=== PATIENT | male | born 1945 | race Caucasian/White ===

== ENCOUNTER 2016-09-01 03:38 | Inpatient (IN) | payer MEDICARE, BC, OTHER ==
[~2016-09-01] VITALS: Ht 167.6 cm; Wt 73.1 kg
[~2016-09-01 03:38] MED LIST: ALLO100T PO; AUGM500T34 PO; CALC600T10 PO; CIPR500T3 PO; COUM1TAB19 PO; FLAG500T PO; LOVE0.01 SC; LOVE0.6I2 SC; MINO25TA PO; OMEP20CA3 PO; PERCOCET PO; POTA10CA PO; PRAV10TA3 PO; PRED25TA PO; PRED5TA PO; SPIR25TA2 PO; SYNT125T PO; SYNT150T PO; TEKT150T PO; TORS10TA3 PO; VITA100066 PO
[2016-09-01] MEDS ORDERED: ONDANSETRON 4MG/2ML VIAL (J2405) As Ordered ONE (05:25)
[2016-09-01] MEDS ORDERED: LEVOTHYROXINE 0.15 MG TAB (150 MCG) PO SCH (06:00)
[2016-09-01 06:46] LABS: MEAN CORPUSCULAR HEMOGLOBIN 35.7 pg (27.0-33.0); MEAN CORPUSCULAR HGB CONC 32.2 g/dl (32.0-36.5); MEAN CORPUSCULAR VOLUME 110.6 fl (80.0-96.0); PLATELET COUNT, AUTOMATED 571 k/mm3 (150-450); RED CELL DISTRIBUTION WIDTH 15.6 % (11.5-14.5); WHITE BLOOD COUNT 28.3 K/mm3 (4.0-10.0)
[2016-09-01 06:47] LABS: DIFF SLIDE NUMBER 118
[2016-09-01 07:02] LABS: ALBUMIN 3.4 GM/DL (3.2-5.2); ALKALINE PHOSPHATASE 123 U/L (45-117); ALT/SGPT 31 U/L (12-78); AMYLASE 55 U/L (25-115); ANION GAP 14 MEQ/L (8-16); AST/SGOT 19 U/L (15-37); BILIRUBIN,DIRECT < 0.1 MG/DL (0.0-0.2); BILIRUBIN,TOTAL 0.4 MG/DL (0.2-1.0); BLOOD UREA NITROGEN 34 MG/DL (7-18); CALCIUM LEVEL 9.8 MG/DL (8.8-10.2); CARBON DIOXIDE LEVEL 21 MEQ/L (21-32); CHLORIDE LEVEL 106 MEQ/L (98-107); CREATININE FOR GFR 2.06 MG/DL (0.70-1.30); GLOMERULAR FILTRATION RATE 34.1 (>42); GLUCOSE, FASTING 208 MG/DL (83-110); POTASSIUM SERUM 4.1 MEQ/L (3.5-5.1); SODIUM LEVEL 141 MEQ/L (136-145); TOTAL PROTEIN 9.1 GM/DL (6.4-8.2)
[2016-09-01 07:12] LABS: BANDS 10 % (< 11); BASOPHILS 1 % (0-4); EOSINOPHILS 1 % (0-5); NUCLEATED RED BLOOD CELL 1 % (0-0)
[2016-09-01 07:13] LABS: PLATELET CLUMPS SMALL AMT
[2016-09-01 07:14] LABS: GIANT PLATELETS 1+; HYPOCHROMASIA 1+
[2016-09-01] MEDS ORDERED: ACETAMINOPHEN 325 MG TAB As Ordered ONE ×2 (07:17→12:23)
[2016-09-01] MEDS ORDERED: PROMETHAZINE INJ 25 MG/ML VIAL (J2550) As Ordered ONE (07:34)
[2016-09-01] MEDS ORDERED: ENOXAPARIN 100MG/1ML SYRINGE (J1650) As Ordered ONE (08:32)
[2016-09-01] MEDS ORDERED: PYRIDOXINE 50 MG TAB PO SCH (09:00)
--- NOTE | 2016-09-01 10:26 | REP ---
Clinical: Chest pain and tachycardia . Comparison: 06/07/2016 . Findings: The mediastinum and cardiac silhouette are stable and within normal limits for portable technique. The lung ray are clear without acute consolidation, effusion, or pneumothorax. Skeletal structures are intact. Impression: Normal portable chest x-ray Signed by Josh Vaughan MD 09/01/2016 10:18 A
[2016-09-01] MEDS ORDERED: PYRI100T2 PO (11:06)
[2016-09-01] MEDS ORDERED: ONDANSETRON 4MG/2ML VIAL (J2405) IV PRN (11:45)
[2016-09-01 13:06] LABS: BASO % 0.2 % (0.0-1.0); EOS # 0.3 K/mm3 (0.0-0.50); EOS % 1.8 % (0.0-3.0); LARGE UNSTAINED CELL # 0.2 K/mm3 (0.0-0.4); LARGE UNSTAINED CELL % 0.8 % (0.0-4.0); LYMPH # 1.8 K/mm3 (1.5-4.5); LYMPH % 9.2 % (24.0-44.0); MEAN CORPUSCULAR HEMOGLOBIN 34.8 pg (27.0-33.0); MEAN CORPUSCULAR HGB CONC 31.3 g/dl (32.0-36.5); MEAN CORPUSCULAR VOLUME 111.1 fl (80.0-96.0); MONO # 0.8 K/mm3 (0.0-0.8); MONO % 4.5 % (0.0-5.0); NEUTROPHILS # 15.1 K/mm3 (1.8-7.7); NEUTROPHILS % 83.4 % (36.0-66.0); RED CELL DISTRIBUTION WIDTH 16.4 % (11.5-14.5)
[2016-09-01 13:08] LABS: PLATELET COUNT, AUTOMATED 427 k/mm3 (150-450)
--- NOTE | 2016-09-01 14:20 | HPE ---
DATE OF ADMISSION: 09/01/2016 This is a patient of Dr. Skinner. CHIEF COMPLAINT: Vomiting. SUMMARY OF PRESENTATION: This is a 71-year-old who was in a normal state of health yesterday. He had half a sub for dinner, which was left over from the day before. They have city water. No recent travel. No known sick contacts. He developed vomiting and diarrhea multiple times, starting at right around midnight or a little bit after. Every time he vomited he would have loose stools. He said it felt as though it was running out of both ends at once. He had cramping abdominal pain associated with it. At this point, he has had not had loose bowel movement or vomiting in several hours. He did have a positive screen for norovirus in the emergency department. PAST MEDICAL HISTORY: Notable for: 1. Hypertension. 2. Dyslipidemia. 3. Hypothyroidism. 4. 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 5. Recent deep vein thrombosis (DVT) and pulmonary embolism (PE). 6. Mediastinal lymphadenopathy. FAMILY HISTORY: Notable for a father who is due to lung cancer. Former smoker. 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 He had two hospitalizations in May 2016. The last was for likely gastritis. He has been fine since. He has had no recent change in medications. REVIEW OF SYSTEMS: There is no headache. No visual changes. He has a sore throat. No neck pain. No cough. No shortness of breath. No chest pain. He had crampy abdominal pain associated with vomiting and diarrhea, which has since resolved. Otherwise is unremarkable. PHYSICAL EXAMINATION: Blood pressure 111/72, pulse 128, respiratory rate 26, temperature 103.2, 98% on room air. Weight 72.5 kg, body mass index 25.8. He is awake, appropriately interactive, pleasant conversant, and a good historian. Sinuses are nontender. Pupils equal, round, and reactive. Anicteric. Not injected. Nasal septum is midline. Mucous membranes are moist. Neck is supple. No cervical or supraclavicular adenopathy. Breathing is symmetrical, rested. Inspiratory to expiratory (I-to-E) ratio is 1:3. No wheezes, rales, or rhonchi. Heart is in a regular rhythm. Normal S1, S2. He is tachycardic. Distal pulses 2+. Capillary refill is less than 2 seconds. Abdomen is notable for active bowel sounds. Soft, nontender, nondistended. There is no lower extremity edema. He is moving all four extremities. Cranial nerves II-XII are grossly intact. He has normal mood and affect. There are labs available for me to review, which include the following. White cell count 28.3, hemoglobin 12.8, platelets of 571, neutrophils 84, bands 10. Sodium 141, potassium 4.1, chloride 106, carbon dioxide 21, BUN 34, creatinine 2.06, glucose is 208. Chest x-ray done today shows no acute findings. ALLERGIES: Patient has allergies listed on ANGIOTENSIN-CONVERTING ENZYME (PORTIA) INHIBITORS, SULFA DRUGS, and ANGIOTENSIN RECEPTOR BLOCKERS (ARBs). MEDICATIONS AT HOME: Listed as: - Synthroid 150 mcg daily - omeprazole 20 mg once daily - prednisone 5 mg twice daily - torsemide 10 mg daily - allopurinol 150 mg daily - Tekturna 75 mg daily - Lovenox 75 mg subcutaneous every 12 hours - spironolactone 25 mg twice daily - vitamin D 2000 units daily - calcium supplement - vitamin B6 supplement ASSESSMENT: This is a 71-year-old with norovirus and acute renal failure. Patient will require 2-midnight hospital stay due to his current illness. PLAN: 1. Gastroenteritis. Patient has norovirus. Will be treated with Zofran as needed, intravenous (IV) fluids. Advance to clear liquid diet. Anticipate that this will resolve relatively quickly, although he is immunocompromised with chronic steroid use, possibly related to nephrotic-range proteinuria. The patient is tachycardic and will be placed on the telemetry unit for closer monitoring. 2. Patient is on chronic steroids with the possibility of adrenal insufficiency. At this point we will give some additional steroids, enough to support him through his illness. 3. Patient has acute renal failure. Obviously hold his diuretics currently. Continue with IV fluid supplementation. He has already received 2 liters in the emergency department. 4. Patient has hypothyroidism. Will continue his Synthroid. 5. Patient has a history of PE and DVT. He is on Lovenox, which will be continued at a somewhat lower dose. 6. Patient presumably has gastroesophageal reflux disease (GERD), as he is treated with omeprazole as an outpatient. Case discussed with at bedside.
[2016-09-01 15:02] LABS: ALBUMIN 2.8 GM/DL (3.2-5.2); ALBUMIN/GLOBULIN RATIO 0.74 (1.00-1.93); BILIRUBIN,TOTAL 0.4 MG/DL (0.2-1.0); CREATININE FOR GFR 3.21 MG/DL (0.70-1.30); GLOMERULAR FILTRATION RATE 20.4 (>42); TOTAL PROTEIN 6.6 GM/DL (6.4-8.2)
[2016-09-01 15:29] LABS: POTASSIUM SERUM 5.7 MEQ/L (3.5-5.1)
[2016-09-01 15:30] LABS: CALCIUM LEVEL 8.2 MG/DL (8.8-10.2)
--- NOTE | 2016-09-01 20:05 | EDDOCDS ---
Physician Documentation [facility] Name: Efren Palacio Age: 71 yrs Sex: Male : 1945 Arrival Date: 09/01/2016 Time: 03:38 Bed 11 Private MD: Disposition: 09/01 10:39 Critical Care: Critical care not applicable. Disposition: 09/01/16 10:42 Hospitalization ordered by Honorio Messina for Inpatient Admission. Preliminary diagnosis are Dehydration, Other viral enteritis - Norovirus, Acute kidney failure. - Bed requested for PCU. - Status is Inpatient Admission. mv5 - Condition is Stable. - Problem is new. - Symptoms have improved. Historical: - Allergies: PORTIA INHIBITORS; SULFA (SULFONAMIDES); arbs; - Home Meds: 1. Synthroid 150 mcg Oral tab once daily 2. omeprazole 20 mg Oral cpDR 1 cap once daily 3. prednisone 5 mg Oral tab 2 times per day 5mg in AM, 2.5mg in PM 4. torsemide 10 mg oral tab 1 tab once daily 5. allopurinol 150mg Oral once daily 6. Tekturna 150 mg oral tab 0.5 tab once daily 7. Lovenox 75 mg Sub-Q syrg every 12 hours 9am & 9pm 8. spironolactone 25 mg Oral tab 1 tab 2 times per day 9. Vitamin D3 2,000 unit oral cap daily 10. Calcium 600 600 mg (1,500 mg) oral tab daily 11. Vitamin B-6 100 mg Oral tab - PMHx: stage 3 kidney disease; DVT; PE; GERD; Gout; Hypothyroidism; - PSHx: lymph node removed from mediastinum; Carpal Tunnel Repair- Right; bronchoscopy; Rotator Cuff Repair- Left; Appendectomy; Colonoscopy; Endoscopy, Upper; - Social history: Smoking status: Patient states was never smoker of tobacco. No barriers to communication noted, The patient speaks fluent Turkmen, Speaks appropriately for age. - Family history: Not pertinent. - : The pt / caregiver states he / she is on anticoagulants: Lovenox. Home medication list is obtained from the patient. - Exposure Risk Screening:: None identified. Vital Signs: 03:51 Pulse 119 MON; Resp 22 S; Temp 98.3(TE); Pulse Ox 94% on R/A; Weight 72.57 kg / 159.99 cln lbs (R); Height 5 ft. 6 in. (167.64 cm) (R); Pain 0/10; 04:21 BP 154 / 82 (auto/); ja5 04:21 Pulse 118 MON; Pulse Ox 92% ; ja5 04:22 BP 154 / 82 RA Supine (auto/reg); cln 06:36 Pulse 130 MON; Pulse Ox 91% ; ja5 07:08 BP 120 / 78 (auto/); ja5 07:11 Pulse 120 MON; Pulse Ox 91% ; ja5 07:13 BP 120 / 78; Pulse 120; Resp 20; Temp 102.8(O); Pulse Ox 96% on R/A; Pain 8/10; ja5 09:47 BP 111 / 71 (auto/); ja5 10:01 BP 111 / 72; Pulse 128; Resp 26; Temp 103.2(O); Pulse Ox 90% on R/A; jc4 10:05 Pulse Ox 94% on 2 lpm NC; jc4 10:41 BP 108 / 66 (auto/); ja5 10:42 Pulse 120 MON; ja5 10:44 Temp 100.9(O); jc4 11:41 BP 97 / 67 (auto/); ja5 11:41 Pulse 118 MON; ja5 11:41 BP 101 / 66; Pulse 120; Resp 24; Temp 101.3(O); Pulse Ox 94% ; Pain 0/10; ja5 11:55 BP 101 / 66 (auto/); ja5 11:55 Pulse 122 MON; ja5 12:37 Pulse 118 MON; Pulse Ox 95% ; ja5 12:41 BP 108 / 58 (auto/); ja5 13:41 BP 109 / 66 (auto/); ja5 13:41 Pulse 116 MON; ja5 14:16 Temp 99.7(O); ja5 14:41 BP 91 / 58 (auto/); ja5 14:41 Pulse 118 MON; Pulse Ox 94% ; ja5 14:41 BP 118 / 57; Pulse 107; Resp 24; Temp 100.7(O); Pulse Ox 95% on 2 lpm NC; Pain 0/10; ja5 15:41 BP 98 / 62 (auto/); ja5 15:41 Pulse 112 MON; ja5 16:20 BP 118 / 57 (auto/); ja5 16:20 Pulse 110 MON; ja5 16:41 BP 117 / 61 (auto/); ja5 16:41 Pulse 104 MON; Pulse Ox 94% ; ja5 17:41 BP 109 / 62 (auto/); ja5 17:41 Pulse 106 MON; ja5 17:54 BP 109 / 62; Pulse 107; Resp 20; Temp 100.2(O); Pulse Ox 95% on 2 lpm NC; Pain /10; ja5 18:41 BP 105 / 70 (auto/); mv5 18:42 Pulse 114 MON; mv5 03:51 Body Mass Index 25.82 (72.57 kg, 167.64 cm) cln MDM: 04:44 [facility] Payment Agreement was scanned into [employer] and attached to record. hs2 05:25 Ondansetron 8 mg IVP once ordered. nn1 06:14 Financial registration complete. hs2 06:17 IV Saline Lock ordered. cs11 06:17 NS 0.9% 500 ml IV at bolus once ordered. cs11 06:18 CBC with Diff Ordered. EDMS 06:18 MED Profile Ordered. EDMS 06:18 Liver Profile Ordered. EDMS 06:18 Amylase Ordered. EDMS 06:18 Lipase Ordered. EDMS 06:19 GASTROINTESTINAL (GI) PANEL Ordered. EDMS 06:48 DIFFERENTIAL NO CHARGE Ordered. EDMS 06:48 PLATELET ESTIMATE Ordered. EDMS 07:08 CBC with Diff Reviewed. pc 07:08 MED Profile Reviewed. pc 07:08 Liver Profile Reviewed. pc 07:08 Amylase Reviewed. pc 07:08 Lipase Reviewed. pc 07:11 NS 0.9% 1000 ml IV at bolus once ordered. pc 07:15 Acetaminophen Tablet 650 mg PO once ordered. pc 07:28 CBC with Diff Reviewed. pc 07:28 PLATELET ESTIMATE Reviewed. pc 07:29 Promethazine 25 mg IVP once; dilute and administer 30-60 minutes ordered. pc 08:30 Enoxaparin (1mg/kg) 75 mg Sub-Q once; Ensure no Heparin in past 6hrs. Ensure any jc4 baseline labs are drawn. ordered. 10:03 Oxygen 2L via NC, titrate to maintain PO >95% ordered. pc 10:04 Chest, 1 View Ordered. EDMS 10:04 ECG WITH READING ER PHYS+CARDIAG ordered. EDMS 10:04 BED REQUEST+ADM ordered. EDMS 10:39 Data reviewed: lab test results. Test interpretation: LAB - all labs as ordered have pc been reviewed, interpreted and considered in the overall management of the clinical presentation;. The patient has been re-examined and re-evaluated. The patient's symptoms have mildly improved after treatment. Physician consultation: Dr. Honorio Messina MD was contacted at 10:40, regarding admission. Disposition: The historical points, examination findings, and any diagnostic results supporting the provided diagnosis, were discussed with the patient or legal guardian. The need for further work-up and/or treatment in the hospital was explained. 10:52 Test interpretation: EKG. pc 11:14 Test interpretation: X-RAY - interpreted by Radiologist and personally reviewed, 1 view pc chest no acute disease. 11:37 Admission / Observation Status ordered. EDMS 11:39 COMPLETE COMPHRENSIVE METABOLI Ordered. EDMS 11:39 MAGNESIUM LEVEL Ordered. EDMS 11:39 CBC WITH DIFFERENTIAL Ordered. EDMS 11:40 OTHER CUSTOM DIETS ordered. EDMS 12:40 NS 0.9% 1000 ml IV at 100 mL/hr continuous ordered. ja5 12:40 Acetaminophen Tablet 650 mg PO once ordered. ja5 12:44 LACTIC ACID LEVEL, LACTATE Ordered. EDMS 12:44 CBC WITH DIFFERENTIAL Ordered. EDMS 12:44 COMPLETE COMPHRENSIVE METABOLI Ordered. EDMS 19:00 CBC WITH DIFFERENTIAL Reviewed. cs11 19:00 COMPLETE COMPHRENSIVE METABOLI Reviewed. cs11 19:00 GASTROINTESTINAL (GI) PANEL Reviewed. cs11 19:00 LACTIC ACID LEVEL, LACTATE Reviewed. cs11 19:00 Chest, 1 View Reviewed. cs11 19:32 CBC WITH DIFFERENTIAL Ordered. EDMS 19:32 RENAL PROFILE Ordered. EDMS EC:52 Rate is 122 beats/min. Rhythm is regular, Sinus tachycardia. QRS [place] is Normal. [place] pc interval is normal. QRS interval is normal. QT interval is normal. No Q waves. T waves are Normal. No ST changes noted. Clinical impression: Sinus tachycardia. Administered Medications: 05:29 Drug: Ondansetron 8 mg [ondansetron HCl 2 mg/mL intravenous solution (3.75 mL)] Route: nn1 IVP; Site: left antecubital; 07:08 Not Given (..): NS 0.9% 500 ml IV at bolus once cs11 07:23 Drug: NS 0.9% 1000 ml [sodium chloride 0.9 % intravenous solution] Route: IV; Rate: ja5 bolus; Site: left antecubital; 09:13 Follow up: IV Status: Completed infusion ja5 07:50 Drug: Promethazine 25 mg [promethazine 25 mg/mL injection solution (1 mL)] Route: IVP; ja5 Site: left antecubital; 08:30 Drug: Acetaminophen 650 mg [acetaminophen 325 mg tablet (2 tabs)] Route: PO; ja5 10:01 Follow up: BP 111 / 72; Pulse 128 bpm; Resp 26 bpm; Temp 103.2 Oral; Pulse Ox 90% RA jc4 08:37 Drug: Enoxaparin (1mg/kg) 75 mg [enoxaparin 100 mg/mL subcutaneous syringe (0.75 mL)] ja5 {Co-Signature: heath4 (Modesta Palomino RN).} Route: Sub-Q; Site: left lower abdomen; 12:30 Drug: NS 0.9% 1000 ml [sodium chloride 0.9 % intravenous solution] Route: IV; Rate: 100 ja5 mL/hr; Site: left antecubital; 12:30 Drug: Acetaminophen 650 mg [acetaminophen 325 mg tablet (2 tabs)] Route: PO; ja5 14:16 Follow up: Temp 99.7 Oral ja5 Signatures: Dispatcher [employer] EDMS Christopher Shay MD MD pc Castle, Jennifer, KARI RN jc4 Aleksey Palafox DO DO cs11 Flalon Mccoy RN RN nn1 Marc Calvo RN RN [facility] Dianelys, Reg Reg hs2 Abida NavaRN RN kerrie5 Sidra Muñoz RN RN mv5 Modesta Palomino RN jc4 The chart was reviewed and I authenticate all verbal orders and agree with the evaluation and treatment provided.Corrections: (The following items were deleted from the chart) 06:19 06:18 GASTROINTESTINAL (GI) PANEL+LIZETH ordered. EDNV EDMS Attachments: 04:44 [facility] Payment Agreement hs2 MTDD
--- NOTE | 2016-09-01 20:05 | EDDOCDS ---
Nurse's Notes [facility] Name: Efren Palacio Age: 71 yrs Sex: Male : 1945 Arrival Date: 09/01/2016 Time: 03:38 Bed 11 Private MD: Diagnosis: Dehydration;Other viral enteritis-Norovirus;Acute kidney failure Presentation: 09/01 03:41 Presenting complaint: EMS states: nausea/vomiting/diarrhea since 0020. Patient reports nn1 chills. Sudden onset. 20G LAC, received 4mg zofran. FSBS 241. Suicide/Homicide risk assessment- the patient denies having any suicidal and/or homicidal ideations and does not present with any other emotional, behavioral or mental health complaints. Status: Patient is not a visitor services assistant or dependent. Transition of care: patient was not received from another setting of care. Care prior to arrival: Medications administered prior to arrival: zofran 4mg IV initiated. Saline lock initiated. Glucose check. 241. 03:41 Acuity: GEOVANI Level 3 nn1 03:41 Method Of Arrival: Ambulance nn1 07:05 Adult Sepsis Screening: The patient does not have new or worsening altered mentation. jc4 Patient has a respiratory rate of greater than or equal to 22 (1 point). Systolic blood pressure is greater than 100. Patient has a qSOFA score of 1- Negative Sepsis Screen. Triage Assessment: 03:50 General: Appears distressed, Behavior is restless, Shaking . General: Appears Behavior nn1 is anxious. Pain: Location: epigastric area Pain currently is 5 out of 10 on a pain scale. Quality of pain is described as aching, dull, Pain began 4 hours ago. The patient is triaged at the bedside. See Assessment in Nurses Notes section of ED record. Neurological: Level of Consciousness is awake, alert, obeys commands, Oriented to person, place, time. Respiratory: Airway is patent Respiratory effort is even, labored, Respiratory pattern is regular, hyperventilation. GI: Abdomen is non- distended Bowel sounds present X 4 quads. Abd is soft X 4 quads Abd is tender to palpation in epigastric area, umbilical area and suprapubic area Reports diarrhea, nausea, vomiting. Derm: Skin is normal. Historical: - Allergies: PORTIA INHIBITORS; SULFA (SULFONAMIDES); arbs; - Home Meds: 1. Synthroid 150 mcg Oral tab once daily 2. omeprazole 20 mg Oral cpDR 1 cap once daily 3. prednisone 5 mg Oral tab 2 times per day 5mg in AM, 2.5mg in PM 4. torsemide 10 mg oral tab 1 tab once daily 5. allopurinol 150mg Oral once daily 6. Tekturna 150 mg oral tab 0.5 tab once daily 7. Lovenox 75 mg Sub-Q syrg every 12 hours 9am & 9pm 8. spironolactone 25 mg Oral tab 1 tab 2 times per day 9. Vitamin D3 2,000 unit oral cap daily 10. Calcium 600 600 mg (1,500 mg) oral tab daily 11. Vitamin B-6 100 mg Oral tab - PMHx: stage 3 kidney disease; DVT; PE; GERD; Gout; Hypothyroidism; - PSHx: lymph node removed from mediastinum; Carpal Tunnel Repair- Right; bronchoscopy; Rotator Cuff Repair- Left; Appendectomy; Colonoscopy; Endoscopy, Upper; - Social history: Smoking status: Patient states was never smoker of tobacco. No barriers to communication noted, The patient speaks fluent Malian, Speaks appropriately for age. - Family history: Not pertinent. - : The pt / caregiver states he / she is on anticoagulants: Lovenox. Home medication list is obtained from the patient. - Exposure Risk Screening:: None identified. Screenin:53 Screening information is obtained from the patient, family members. Fall risk: No risks nn1 identified. Assistance ADL's: requires no assistance with activities of daily living. Abuse/DV Screen: The patient / caregiver reports he/she is: not in a situation that causes fear, pain or injury. Nutritional screening: No deficits noted. Advance Directives: Currently, there is a health care proxy, Patito Palacio, . home support is adequate. Assessment: 03:53 General: See triage assessment . GI: Abdomen is flat, non- distended Bowel sounds nn1 present X 4 quads. Abd is soft X 4 quads Abd is tender to palpation in epigastric area, umbilical area and suprapubic area. 05:29 General: Patient has vomited twice since zofran administration en route, patient nn1 medicated with more zofran at this time. Patient received 1L IV fluid from EMS. Patient reports gaseousness. . 06:34 General: Provider consulted about fluids, informed this documenter to hold 500mL bolus. nn1 Patient had large bowel movement, stool sample taken. Stools are watery, foul smell. . 07:12 General: Appears uncomfortable, Behavior is appropriate for age, cooperative. Pain: ja5 Location: epigastric area Pain currently is 8 out of 10 on a pain scale. Neurological: Level of Consciousness is awake, alert, Oriented to person, place, time. Cardiovascular: Capillary refill < 3 seconds Heart tones S1 S2 present. Respiratory: Airway is patent Respiratory effort is even, unlabored, Respiratory pattern is regular, symmetrical. Derm: Skin is intact, Skin is pink, warm & dry. 07:52 General: Upon assessing patient I found that patient had an oral temperature of 102.8 ja5 with a HR 120 and patient had complaints of nausea, provider notified, new orders received for tylenol, IV NS bolus and phenergan. . 08:20 General: Phenergan has finished infusing, NS IV bolus is still running, patient states ja5 he is still nauseated and doesn't feel like he can take the PO tylenol. He is resting comfortably in stretcher, is at bedside, call wheeler in reach.. 09:14 General: Patient reports that he is feeling worse at this time. IV bolus infusion is ja5 complete, [facility] He was unsteady during transfer and needed some standby assist. Oral temp was taken, is currently 102.9. 10:02 General: Appears in no apparent distress, Behavior is cooperative, quiet. Neurological: jc4 Level of Consciousness is awake, alert, Oriented to person, place, time. Cardiovascular: Capillary refill < 3 seconds Heart tones S1 S2 present Rhythm is sinus tachycardia No ectopy. Respiratory: Airway is patent Respiratory effort is even, Respiratory pattern is tachypnea Breath sounds are diminished in left posterior lower lobe and right posterior lower lobe. GI: Abdomen is non- distended Reports was just up to the commode to have diarrhea. Derm: Skin is dry, Skin is pink, Skin temperature is hot. 10:03 General: Ice packs placed to bilateral axillae. Dr. Shay made aware of patient vital jc4 signs, interventions. 10:44 General: Pt lying supine on stretcher. States is feeling much more comfortable. Color jc4 pink, skin hot and dry. Respirations easy and full. pump installation and servicer -sinus tach without ectopy. Saline lock in place. at bedside. 11:20 General: Dr. Messina in to examine patient. jc4 12:15 General: Pt lying on stretcher. Ice packs applied to bilateral axillae. Color flushed, jc4 skin hot and dry. Respirations 24/minute. pump installation and servicer - sinus tach without ectopy. Pt states just feels weak and tired. 14:30 General: Patient laying in stretcher, states that he is "feeling a little better" and ja5 wants to try eating a popsicle. 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 is at bedisde, call wheeler in reach.. 16:28 General: Patient is in stretcher laying down, respirations even and unlabored, O2 sat ja5 95% on 2L O2 NC, sinus rhythm on track car operator, patient denies nausea at this time. Patient requests another popsicle, rashel irasema and water. He is tolerating his PO fluids very well. is at bedside, call wheeler in reach.. 17:56 General: Patient is awake, alert and oriented x3 with no complaints of nausea, his ja5 abdominal pain is 1/10 and he states that it is tolerable for him. O2 sat 95% on 2L O2 NC with even unlabored respirations, SR on track car operator, no ectopy noted. Patient is currently awaiting being transferred to his room. is at bedside, call wheeler in reach.. 18:00 General: Appears in no apparent distress, Behavior is appropriate for age, cooperative. ja5 Neurological: Level of Consciousness is awake, alert, Oriented to person, place, time. Cardiovascular: Capillary refill Rhythm is sinus rhythm No ectopy. Respiratory: Airway is patent Respiratory effort is even, unlabored, Respiratory pattern is regular, symmetrical. GI: Abdomen is flat, non- distended Denies intolerance of fluids, nausea, vomiting. Derm: Skin is intact, Skin is pink, warm & dry. 19:33 General: Appears in no apparent distress, Behavior is appropriate for age, cooperative. mv5 General: Pt awaiting transfer to inpatient bed.. Neurological: Level of Consciousness is awake, alert, Oriented to person, place, time. Respiratory: Airway is patent Respiratory effort is even, unlabored, Respiratory pattern is regular, symmetrical. Derm: Skin is pink, warm & dry. 20:02 General: Spoke with hospitalist Austen, given order that pt may transport off monitor mv5 to PCU.. Vital Signs: 03:51 Pulse 119 MON; Resp 22 S; Temp 98.3(TE); Pulse Ox 94% on R/A; Weight 72.57 kg (R); cln Height 5 ft. 6 in. (167.64 cm) (R); Pain 0/10; 04:21 BP 154 / 82 (auto/); ja5 04:21 Pulse 118 MON; Pulse Ox 92% ; ja5 04:22 BP 154 / 82 RA Supine (auto/reg); cln 06:36 Pulse 130 MON; Pulse Ox 91% ; ja5 07:08 BP 120 / 78 (auto/); ja5 07:11 Pulse 120 MON; Pulse Ox 91% ; ja5 07:13 BP 120 / 78; Pulse 120; Resp 20; Temp 102.8(O); Pulse Ox 96% on R/A; Pain 8/10; ja5 09:47 BP 111 / 71 (auto/); ja5 10:01 BP 111 / 72; Pulse 128; Resp 26; Temp 103.2(O); Pulse Ox 90% on R/A; jc4 10:05 Pulse Ox 94% on 2 lpm NC; jc4 10:41 BP 108 / 66 (auto/); ja5 10:42 Pulse 120 MON; ja5 10:44 Temp 100.9(O); jc4 11:41 BP 97 / 67 (auto/); ja5 11:41 Pulse 118 MON; ja5 11:41 BP 101 / 66; Pulse 120; Resp 24; Temp 101.3(O); Pulse Ox 94% ; Pain 0/10; ja5 11:55 BP 101 / 66 (auto/); ja5 11:55 Pulse 122 MON; ja5 12:37 Pulse 118 MON; Pulse Ox 95% ; ja5 12:41 BP 108 / 58 (auto/); ja5 13:41 BP 109 / 66 (auto/); ja5 13:41 Pulse 116 MON; ja5 14:16 Temp 99.7(O); ja5 14:41 BP 91 / 58 (auto/); ja5 14:41 Pulse 118 MON; Pulse Ox 94% ; ja5 14:41 BP 118 / 57; Pulse 107; Resp 24; Temp 100.7(O); Pulse Ox 95% on 2 lpm NC; Pain 0/10; ja5 15:41 BP 98 / 62 (auto/); ja5 15:41 Pulse 112 MON; ja5 16:20 BP 118 / 57 (auto/); ja5 16:20 Pulse 110 MON; ja5 16:41 BP 117 / 61 (auto/); ja5 16:41 Pulse 104 MON; Pulse Ox 94% ; ja5 17:41 BP 109 / 62 (auto/); ja5 17:41 Pulse 106 MON; ja5 17:54 BP 109 / 62; Pulse 107; Resp 20; Temp 100.2(O); Pulse Ox 95% on 2 lpm NC; Pain 1/10; ja5 18:41 BP 105 / 70 (auto/); mv5 18:42 Pulse 114 MON; mv5 03:51 Body Mass Index 25.82 (72.57 kg, 167.64 cm) cln Vitals: 18:47 Log In Time N/A - ambulance arrival. 4 ED Course: 03:39 Patient visited by Rossana Pinto, Smart Grid Engineer. ml3 03:39 Patient moved to Waiting ml3 03:40 Patient moved to 11 ml3 03:44 Triage Initiated nn1 03:50 Pt greeted and oriented to ED. Patient advised of names of staff involved in care, cln location of call wheeler, wait times and NPO status. Accompanied by Family Member, Patient has correct armband on for positive identification. Placed in gown. Bed in low position. Call light in reach. Side rails up X 1. 03:51 Patient visited by Zaina Rogers PCA. cln 03:54 Maintain field IV. Site clean & dry. Gauge & site: 20G LAC . IV with fluids infusing nn1 freely, with good blood return. 04:22 Patient visited by Zaina Rogers PCA. cln 04:44 [facility] Payment Agreement was scanned into [employer] and attached to record. hs2 05:30 Patient visited by Fallon Mccoy RN. nn1 06:10 Patient visited by Fallon Mccoy RN. nn1 06:13 Aleksey Palafox DO is Attending Physician. cs11 06:13 Patient visited by Aleksey Palafox DO. cs11 06:26 GASTROINTESTINAL (GI) PANEL Sent. nn1 06:27 Lipase Sent. nn1 06:27 Amylase Sent. nn1 06:27 Liver Profile Sent. nn1 06:27 MED Profile Sent. nn1 06:27 CBC with Diff Sent. nn1 06:56 Patient visited by Fallon Mccoy RN. nn1 06:56 DIFFERENTIAL NO CHARGE Sent. nn1 07:04 Modesta Palomino RN is Primary Nurse. jc4 07:04 Abida Nava RN is Primary Nurse. ja5 07:06 Attending Physician role handed off by Aleksey Palafox DO pc 07:06 Christopher Shay MD is Attending Physician. pc 07:28 Patient visited by Abida Nava RN. ja5 07:50 The patient / caregiver is instructed regarding the plan of care and ED course. jc4 08:25 Patient visited by Abida Nava RN. ja5 09:17 Patient visited by Abida Nava RN. ja5 10:01 Patient visited by Modesta Palomino RN. jc4 10:05 O2 via nasal cannula \\T\\ 2L/min. jc4 10:33 Chest, 1 View Returned. EDMS 10:42 Honorio Messina MD is Hospitalizing Provider. pc 10:54 EKG done. (by ED staff). Reviewed by Christopher Shay MD. jlm 10:55 Patient visited by Fátima Wheeler, Smart Grid Engineer. jlm 18:48 Patient visited by Modesta Palomino RN. jc4 19:02 Primary Nurse role handed off by Moedsta Palomino RN jc4 19:02 Primary Nurse role handed off by Abida Nava RN jc4 19:04 Sidra Muñoz,KARI is Primary Nurse. mv5 19:47 No procedures done that require assistance. mv5 Administered Medications: 05:29 Drug: Ondansetron 8 mg [ondansetron HCl 2 mg/mL intravenous solution (3.75 mL)] Route: nn1 IVP; Site: left antecubital; 07:08 Not Given (..): NS 0.9% 500 ml IV at bolus once cs11 07:23 Drug: NS 0.9% 1000 ml [sodium chloride 0.9 % intravenous solution] Route: IV; Rate: ja5 bolus; Site: left antecubital; 09:13 Follow up: IV Status: Completed infusion ja5 07:50 Drug: Promethazine 25 mg [promethazine 25 mg/mL injection solution (1 mL)] Route: IVP; ja5 Site: left antecubital; 08:30 Drug: Acetaminophen 650 mg [acetaminophen 325 mg tablet (2 tabs)] Route: PO; ja5 10:01 Follow up: BP 111 / 72; Pulse 128 bpm; Resp 26 bpm; Temp 103.2 Oral; Pulse Ox 90% RA jc4 08:37 Drug: Enoxaparin (1mg/kg) 75 mg [enoxaparin 100 mg/mL subcutaneous syringe (0.75 mL)] ja5 {Co-Signature: jc4 (Modesta Palomino RN).} Route: Sub-Q; Site: left lower abdomen; 12:30 Drug: NS 0.9% 1000 ml [sodium chloride 0.9 % intravenous solution] Route: IV; Rate: 100 ja5 mL/hr; Site: left antecubital; 12:30 Drug: Acetaminophen 650 mg [acetaminophen 325 mg tablet (2 tabs)] Route: PO; ja5 14:16 Follow up: Temp 99.7 Oral ja5 Output: 11:55 Stool: 1 (Loose Stool) ; Total: 0.00ml. ja5 12:15 Stool: 1 (Loose Stool) ; Total: 0.00ml. jc4 Order Results: Lab Order: CBC with Diff; SPEC'M 09/01/16 03:53 Test: WHITE BLOOD COUNT; Value: 28.3; Range: 4.0-10.0; Abnormal: Above high normal; Units: K/mm3; Status: F Test: RED BLOOD COUNT; Value: 3.58; Range: 4.30-6.10; Abnormal: Below low normal; Units: M/mm3; Status: F Test: HEMOGLOBIN; Value: 12.8; Range: 14.0-18.0; Abnormal: Below low normal; Units: g/dl; Status: F Test: HEMATOCRIT; Value: 39.6; Range: 42.0-52.0; Abnormal: Below low normal; Units: %; Status: F Test: MEAN CORPUSCULAR VOLUME; Value: 110.6; Range: 80.0-96.0; Abnormal: Above high normal; Units: fl; Status: F Test: MEAN CORPUSCULAR HEMOGLOBIN; Value: 35.7; Range: 27.0-33.0; Abnormal: Above high normal; Units: pg; Status: F Test: MEAN CORPUSCULAR HGB CONC; Value: 32.2; Range: 32.0-36.5; Units: g/dl; Status: F Test: RED CELL DISTRIBUTION WIDTH; Value: 15.6; Range: 11.5-14.5; Abnormal: Above high normal; Units: %; Status: F Test: PLATELET COUNT, AUTOMATED; Value: 571; Range: 150-450; Abnormal: Above high normal; Units: k/mm3; Status: F Test: NEUTROPHILS; Value: 84; Range: 35-75; Abnormal: Above high normal; Units: %; Status: F Test: BANDS; Value: 10; Range: < 11; Units: %; Status: F Test: LYMPHOCYTES; Value: 3; Range: 16-52; Abnormal: Below low normal; Units: %; Status: F Test: MONOCYTES; Value: 1; Range: 0-8; Units: %; Status: F Test: EOSINOPHILS; Value: 1; Range: 0-5; Units: %; Status: F Test: BASOPHILS; Value: 1; Range: 0-4; Units: %; Status: F Test: NUCLEATED RED BLOOD CELL; Value: 1; Range: 0-0; Abnormal: Above high normal; Units: %; Status: F Test: RBC MORPHOLOGY; Value: NORMAL; Status: F Test: HYPOCHROMASIA; Value: 1+; Status: F Test: MACROCYTOSIS; Value: 3+; Status: F Test: GIANT PLATELETS; Value: 1+; Status: F Test: PLATELET CLUMPS; Value: SMALL AMT; Status: F Lab Order: MED Profile; SPECM 09/01/16 03:53 Test: GLUCOSE, FASTING; Value: 208; Range: 83-110; Abnormal: Above high normal; Units: MG/DL; Status: F Test: BLOOD UREA NITROGEN; Value: 34; Range: 7-18; Abnormal: Above high normal; Units: MG/DL; Status: F Test: CREATININE FOR GFR; Value: 2.06; Range: 0.70-1.30; Abnormal: Above high normal; Units: MG/DL; Status: F Test: GLOMERULAR FILTRATION RATE; Value: 34.1; Range: >42; Abnormal: Below low normal; Status: F Test: SODIUM LEVEL; Value: 141; Range: 136-145; Units: MEQ/L; Status: F Test: POTASSIUM SERUM; Value: 4.1; Range: 3.5-5.1; Units: MEQ/L; Status: F Test: CHLORIDE LEVEL; Value: 106; Range: 98-107; Units: MEQ/L; Status: F Test: CARBON DIOXIDE LEVEL; Value: 21; Range: 21-32; Units: MEQ/L; Status: F Test: ANION GAP; Value: 14; Range: 8-16; Units: MEQ/L; Status: F Test: CALCIUM LEVEL; Value: 9.8; Range: 8.8-10.2; Units: MG/DL; Status: F Test Note: ; Units are mL/min/1.73 m2 Chronic Kidney Disease Staging per NKF: Stage I & II GFR >=60 Normal to Mildly Decreased Stage III GFR 30-59 Moderately Decreased Stage IV GFR 15-29 Severely Decreased Stage V GFR <15 Very Little GFR Left ESRD GFR <15 on DIRECTOR VACCINE Lab Order: Liver Profile; [facility] 09/01/16 03:53 Test: AST/SGOT; Value: 19; Range: 15-37; Units: U/L; Status: F Test: ALT/SGPT; Value: 31; Range: 12-78; Units: U/L; Status: F Test: ALKALINE PHOSPHATASE; Value: 123; Range: 45-117; Abnormal: Above high normal; Units: U/L; Status: F Test: BILIRUBIN,TOTAL; Value: 0.4; Range: 0.2-1.0; Units: MG/DL; Status: F Test: BILIRUBIN,DIRECT; Value: < 0.1; Range: 0.0-0.2; Units: MG/DL; Status: F Test: TOTAL PROTEIN; Value: 9.1; Range: 6.4-8.2; Abnormal: Above high normal; Units: GM/DL; Status: F Test: ALBUMIN; Value: 3.4; Range: 3.2-5.2; Units: GM/DL; Status: F Test: ALBUMIN/GLOBULIN RATIO; Value: 0.60; Range: 1.00-1.93; Abnormal: Below low normal; Status: F Lab Order: Amylase; [facility] 09/01/16 03:53 Test: AMYLASE; Value: 55; Range: 25-115; Units: U/L; Status: F Lab Order: Lipase; [facility] 09/01/16 03:53 Test: LIPASE; Value: 137; Range: 73-393; Units: U/L; Status: F Lab Order: GASTROINTESTINAL (GI) PANEL; [facility] 09/01/16 06:22 Test: GASTROINTESTINAL (GI) PANEL; Value: GI PANEL RESULT POSITIVE by PCR; Status: F Test: GASTROINTESTINAL (GI) PANEL; Value: Comments:; Status: F Test: GASTROINTESTINAL (GI) PANEL; Value: ORGANISM 1: NOROVIRUS; Status: F Test: GASTROINTESTINAL (GI) PANEL; Value: NOROVIRUS; Status: F Test: GASTROINTESTINAL (GI) PANEL; Value: CONSISTENCY OF STOOL CONSISTENCY UNKNOWN.; Status: F Test: GASTROINTESTINAL (GI) PANEL; Value: Norovirus 1 Noroviruses are highly contagious and cause moderate; Status: F Test: GASTROINTESTINAL (GI) PANEL; Value: Norovirus 2 to severe gastroenteritis consisting primarily of; Status: F Test: GASTROINTESTINAL (GI) PANEL; Value: Norovirus 3 nausea, vomiting, and diarrhea with fever.; Status: F Test: GASTROINTESTINAL (GI) PANEL; Value: Norovirus 4 Transmission is fecal-oral or through aerosolized; Status: F Test: GASTROINTESTINAL (GI) PANEL; Value: Norovirus 5 vomitus. Symptoms generally last 24-48 hours and; Status: F Test: GASTROINTESTINAL (GI) PANEL; Value: Norovirus 6 the illness in self-limiting.; Status: F Test Note: ; This Gastrointestinal PCR Panel detects the following bacteria, parasites and viruses: Campylobacter (jejuni, coli and upsaliensis), Clostridium difficile (toxin A/B), Plesiomonas shigelloides, Salmonella, Yersinia enterocolitica, Vibrio (parahaemolyticus, vulnificus and cholerae), Vibrio clolerae, Enteroaggregative E. coli (EAEC), Enteropathogenis E. coli (EPEC), Enterotoxigenic E. coli (ETEC) it/st, Shiga-like producing E. coli (STEC) stx1/stc2, E.coli O157, Shigella/Enteroinvasive E. coli (EIEC), Cryptosporidium, Cyclospora cayetanensis, Entamoeba histolytica, Giardia lamblia, Adenovirus F 40/41, Astrovirus, Norovirus GI/GII, Rotavirus A and Sapovirus (I, II, IV, V). Lab Order: PLATELET ESTIMATE; [facility] 09/01/16 03:53 Test: PLATELET ESTIMATE; Value: NORMAL; Range: NORMAL; Status: F Lab Order: LACTIC ACID LEVEL, LACTATE; [facility] 09/01/16 12:54 Test: LACTIC ACID SEPSIS PROTOCOL; Value: 1.5; Range: 0.4-2.0; Units: MMOL/L; Status: F Lab Order: CBC WITH DIFFERENTIAL; [facility] 09/01/16 12:54 Test: WHITE BLOOD COUNT; Value: 18.0; Range: 4.0-10.0; Abnormal: Above high normal; Units: K/mm3; Status: F Test: RED BLOOD COUNT; Value: 3.39; Range: 4.30-6.10; Abnormal: Below low normal; Units: M/mm3; Status: F Test: HEMOGLOBIN; Value: 11.8; Range: 14.0-18.0; Abnormal: Below low normal; Units: g/dl; Status: F Test: HEMATOCRIT; Value: 37.6; Range: 42.0-52.0; Abnormal: Below low normal; Units: %; Status: F Test: MEAN CORPUSCULAR VOLUME; Value: 111.1; Range: 80.0-96.0; Abnormal: Above high normal; Units: fl; Status: F Test: MEAN CORPUSCULAR HEMOGLOBIN; Value: 34.8; Range: 27.0-33.0; Abnormal: Above high normal; Units: pg; Status: F Test: MEAN CORPUSCULAR HGB CONC; Value: 31.3; Range: 32.0-36.5; Abnormal: Below low normal; Units: g/dl; Status: F Test: RED CELL DISTRIBUTION WIDTH; Value: 16.4; Range: 11.5-14.5; Abnormal: Above high normal; Units: %; Status: F Test: PLATELET COUNT, AUTOMATED; Value: 427; Range: 150-450; Abnormal: Delta; Units: k/mm3; Status: F Test: NEUTROPHILS %; Value: 83.4; Range: 36.0-66.0; Abnormal: Above high normal; Units: %; Status: F Test: LYMPH %; Value: 9.2; Range: 24.0-44.0; Abnormal: Below low normal; Units: %; Status: F Test: MONO %; Value: 4.5; Range: 0.0-5.0; Units: %; Status: F Test: EOS %; Value: 1.8; Range: 0.0-3.0; Units: %; Status: F Test: BASO %; Value: 0.2; Range: 0.0-1.0; Units: %; Status: F Test: LARGE UNSTAINED CELL %; Value: 0.8; Range: 0.0-4.0; Units: %; Status: F Test: NEUTROPHILS #; Value: 15.1; Range: 1.8-7.7; Abnormal: Above high normal; Units: K/mm3; Status: F Test: LYMPH #; Value: 1.8; Range: 1.5-4.5; Units: K/mm3; Status: F Test: MONO #; Value: 0.8; Range: 0.0-0.8; Units: K/mm3; Status: F Test: EOS #; Value: 0.3; Range: 0.0-0.50; Units: K/mm3; Status: F Test: BASO #; Value: 0.0; Range: 0.0-0.2; Units: K/mm3; Status: F Test: LARGE UNSTAINED CELL #; Value: 0.2; Range: 0.0-0.4; Units: K/mm3; Status: F Lab Order: COMPLETE COMPHRENSIVE METABOLI; SPEC'M 09/01/16 12:54 Test: GLUCOSE, FASTING; Value: 107; Range: 83-110; Units: MG/DL; Status: F Test: BLOOD UREA NITROGEN; Value: 41; Range: 7-18; Abnormal: Above high normal; Units: MG/DL; Status: F Test: CREATININE FOR GFR; Value: 3.21; Range: 0.70-1.30; Abnormal: High; Units: MG/DL; Status: F Test: GLOMERULAR FILTRATION RATE; Value: 20.4; Range: >42; Abnormal: Below low normal; Status: F Test: SODIUM LEVEL; Value: 144; Range: 136-145; Units: MEQ/L; Status: F Test: POTASSIUM SERUM; Value: 5.7; Range: 3.5-5.1; Abnormal: Above high normal; Units: MEQ/L; Status: F Test: CHLORIDE LEVEL; Value: 114; Range: 98-107; Abnormal: Above high normal; Units: MEQ/L; Status: F Test: CARBON DIOXIDE LEVEL; Value: 19; Range: 21-32; Abnormal: Below low normal; Units: MEQ/L; Status: F Test: ANION GAP; Value: 11; Range: 8-16; Units: MEQ/L; Status: F Test: CALCIUM LEVEL; Value: 8.2; Range: 8.8-10.2; Units: MG/DL; Status: F Test: AST/SGOT; Value: 17; Range: 15-37; Units: U/L; Status: F Test: ALT/SGPT; Value: 25; Range: 12-78; Units: U/L; Status: F Test: ALKALINE PHOSPHATASE; Value: 100; Range: 45-117; Units: U/L; Status: F Test: BILIRUBIN,TOTAL; Value: 0.4; Range: 0.2-1.0; Units: MG/DL; Status: F Test: TOTAL PROTEIN; Value: 6.6; Range: 6.4-8.2; Abnormal: Delta; Units: GM/DL; Status: F Test: ALBUMIN; Value: 2.8; Range: 3.2-5.2; Abnormal: Below low normal; Units: GM/DL; Status: F Test: ALBUMIN/GLOBULIN RATIO; Value: 0.74; Range: 1.00-1.93; Abnormal: Below low normal; Status: F Test Note: ; Units are mL/min/1.73 m2 Chronic Kidney Disease Staging per NKF: Stage I & II GFR >=60 Normal to Mildly Decreased Stage III GFR 30-59 Moderately Decreased Stage IV GFR 15-29 Severely Decreased Stage V GFR <15 Very Little GFR Left ESRD GFR <15 on DIRECTOR VACCINE Radiology Order: Chest, 1 View Test: Chest, 1 View REASON FOR EXAMINATION: tachycardia; Clinical: Chest pain and tachycardia .; ; Comparison: 06/07/2016 .; ; Findings:; The mediastinum and cardiac silhouette are stable and within normal limits for; portable technique. The lung ray are clear without acute consolidation,; effusion, or pneumothorax. Skeletal structures are intact.; ; Impression:; Normal portable chest x-ray; ; ; Signed by; Josh Vaughan MD 09/01/2016 10:18 A; Outcome: 10:42 Decision to Hospitalize by Provider. pc 19:47 Discharge Assessment: Patient awake, alert and oriented x 3. No cognitive and/or mv5 functional deficits noted. Patient verbalized understanding of disposition instructions. patient administered narcotics -. 19:47 The following High Risk Discharge criteria are identified: None. Admitted to PCU. mv5 Condition: stable. CT Study completed. Property :Personal belongings accompany Pt. 20:04 Patient left the ED. mv5 Signatures: Dispatcher [employer] EDMS Christopher Shay MD MD pc Rossana Pinto, Smart Grid Engineer Unit ml3 Modesta Palomino, RN RN jc4 Aleksey Palafox, DO cs11 Fátima Wheeler, Smart Grid Engineer Unit Fallon Rios,RN RN nn1 Dianelys Rivero, Reg Reg hs2 Zaina Rogers, CLIENT LEADER CLIENT LEADER cln Abida Nava,RN RN kerrie5 Sidra Muñoz,RN RN fran5 Modesta Palomino RN jc4 Corrections: (The following items were deleted from the chart) 16:13 16:09 General: Patient laying in stretcher, states that he is "feeling a little better" ja5 and wants to try eating a popsicle. 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 is at bedisde, call wheeler in reach.. ja5 16:28 13:30 General: Patient laying in stretcher, states that he is "feeling a little better" ja5 and wants to try eating a popsicle. 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 is at bedisde, call wheeler in reach.. ja5 MTDD
[2016-09-01 20:15] VITALS: BP 141/86
[2016-09-01] MEDS: ACETAMINOPHEN TAB 650MG DOSE (2X325MG) PO PRN (21:02)
[2016-09-01] MEDS: HYDROCORTISONE 100 MG/2 ML VIAL (J1720) IV SCH (21:02)
[2016-09-01] MEDS: OMEPRAZOLE 20 MG CAP PO SCH (21:03)
[2016-09-01] MEDS: ENOXAPARIN 80 MG/0.8 ML SYRINGE (J1650) SC SCH (21:03)
[2016-09-01] MEDS: predniSONE 5 MG TAB PO SCH (21:03)
[2016-09-01] MEDS: NS 1,000 ML IV SCH ×2 (21:18→22:08)
[2016-09-01 21:30] LABS: MAGNESIUM LEVEL 1.9 MG/DL (1.8-2.4)
[2016-09-01 23:56] VITALS: BP 113/63
[2016-09-02 05:46] LABS: BASO % 0.1 % (0.0-1.0); EOS # 0.1 K/mm3 (0.0-0.50); EOS % 0.4 % (0.0-3.0); LARGE UNSTAINED CELL # 0.1 K/mm3 (0.0-0.4); LARGE UNSTAINED CELL % 0.6 % (0.0-4.0); LYMPH # 1.1 K/mm3 (1.5-4.5); LYMPH % 4.2 % (24.0-44.0); MEAN CORPUSCULAR HEMOGLOBIN 34.6 pg (27.0-33.0); MEAN CORPUSCULAR HGB CONC 31.5 g/dl (32.0-36.5); MEAN CORPUSCULAR VOLUME 110.1 fl (80.0-96.0); MONO # 0.8 K/mm3 (0.0-0.8); MONO % 3.6 % (0.0-5.0); NEUTROPHILS # 21.1 K/mm3 (1.8-7.7); NEUTROPHILS % 91.2 % (36.0-66.0); PLATELET COUNT, AUTOMATED 357 k/mm3 (150-450); RED CELL DISTRIBUTION WIDTH 16.3 % (11.5-14.5); WHITE BLOOD COUNT 23.2 K/mm3 (4.0-10.0)
[2016-09-02 05:55] VITALS: BP 116/70
[2016-09-02 06:07] LABS: ALBUMIN 2.1 GM/DL (3.2-5.2); CALCIUM LEVEL 7.7 MG/DL (8.8-10.2); CREATININE FOR GFR 2.01 MG/DL (0.70-1.30); PHOSPHORUS LEVEL 3.8 MG/DL (2.5-4.9); POTASSIUM SERUM 4.7 MEQ/L (3.5-5.1)
[2016-09-02] MEDS: HYDROCORTISONE 100 MG/2 ML VIAL (J1720) IV SCH ×2 (06:14→14:13)
[2016-09-02] MEDS: ACETAMINOPHEN TAB 650MG DOSE (2X325MG) PO PRN ×2 (06:14→22:39)
[2016-09-02] MEDS: LEVOTHYROXINE 0.15 MG TAB (150 MCG) PO SCH (06:14)
--- NOTE | 2016-09-02 08:09 | ECGEPIP ---
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
[2016-09-02] MEDS: NS 1,000 ML IV SCH ×2 (08:16→17:04)
[2016-09-02] MEDS: PYRIDOXINE 50 MG TAB PO SCH (08:16)
[2016-09-02] MEDS: OMEPRAZOLE 20 MG CAP PO SCH (08:16)
[2016-09-02] MEDS: predniSONE 5 MG TAB PO SCH ×2 (08:16→20:25)
[2016-09-02] MEDS: ENOXAPARIN 80 MG/0.8 ML SYRINGE (J1650) SC SCH ×2 (08:16→20:25)
[2016-09-02 08:40] VITALS: BP 110/68
[2016-09-02 12:00] VITALS: BP 101/68
[2016-09-02 14:59] LABS: MEAN CORPUSCULAR HEMOGLOBIN 34.8 pg (27.0-33.0); MEAN CORPUSCULAR HGB CONC 31.6 g/dl (32.0-36.5); MEAN CORPUSCULAR VOLUME 109.9 fl (80.0-96.0); RED CELL DISTRIBUTION WIDTH 16.5 % (11.5-14.5); WHITE BLOOD COUNT 17.1 K/mm3 (4.0-10.0)
[2016-09-02 15:21] LABS: CALCIUM LEVEL 7.8 MG/DL (8.8-10.2); CREATININE FOR GFR 1.45 MG/DL (0.70-1.30); GLOMERULAR FILTRATION RATE 51.1 (>42); POTASSIUM SERUM 4.4 MEQ/L (3.5-5.1)
[2016-09-02 17:30] VITALS: BP 114/71
[2016-09-02 22:00] VITALS: BP 112/72
[2016-09-03] MEDS: LEVOTHYROXINE 0.15 MG TAB (150 MCG) PO SCH (05:16)
--- NOTE | 2016-09-03 05:36 | IPN ---
DATE OF VISIT: 09/02/2016 Mr. Palacio is feeling somewhat better today. His loose stool has begun to taper off. He is not complaining of any abdominal pain. He is not nauseous. VITAL SIGNS: Temperature 97.7, pulse 76, respirations 20, blood pressure 101/68, 96% on room air. Intake and output (I and O) notable for a positive fluid balance of 1060, two bowel movements thus far today. GENERAL; He is awake, appropriately interactive, pleasant and conversant. LUNGS: Breathing symmetric and rested. HEART: Heart is in a regular rate and rhythm. ABDOMEN: Abdomen soft, doughy, nontender. LABORATORY DATA: White cell count 17.1, hemoglobin 8.9 and plates 339. Creatinine has improved to 1.45. 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 PLAN: 1. The patient has gastroenteritis from norovirus. This is improving. I will continue with intravenous (IV) fluids and Zofran. The patient will be transferred to the med-surg floor. 2. The patient is on chronic steroids. He has the possibility of adrenal insufficiency. We have given additional steroids and he can be returned to his home dose in the morning. 3. The patient has acute renal failure which is improving, can decrease his IV fluids supplementation at this point. 4. The patient has hypothyroidism. Continue Synthroid. 5. The patient has a history of pulmonary embolus and deep venous thrombosis. He is on Lovenox which is continued. Dosing yesterday was discussed with the pharmacy. 6. The patient has gastrointestinal reflux disease (GERD). 7. I have discussed the case with Dr. Desir in person.
[2016-09-03 06:00] VITALS: BP 119/72
[2016-09-03 07:21] LABS: ALBUMIN 2.4 GM/DL (3.2-5.2); ANION GAP 9 MEQ/L (8-16); BLOOD UREA NITROGEN 23 MG/DL (7-18); CALCIUM LEVEL 8.4 MG/DL (8.8-10.2); CARBON DIOXIDE LEVEL 21 MEQ/L (21-32); CHLORIDE LEVEL 112 MEQ/L (98-107); CREATININE FOR GFR 1.14 MG/DL (0.70-1.30); GLOMERULAR FILTRATION RATE > 60.0 (>42); GLUCOSE, FASTING 94 MG/DL (83-110); PHOSPHORUS LEVEL 1.9 MG/DL (2.5-4.9); POTASSIUM SERUM 4.6 MEQ/L (3.5-5.1); SODIUM LEVEL 142 MEQ/L (136-145)
[2016-09-03 07:23] LABS: BASO % 0.2 % (0.0-1.0); EOS # 0.2 K/mm3 (0.0-0.50); EOS % 2.1 % (0.0-3.0); LARGE UNSTAINED CELL # 0.1 K/mm3 (0.0-0.4); LARGE UNSTAINED CELL % 1.4 % (0.0-4.0); LYMPH # 0.9 K/mm3 (1.5-4.5); LYMPH % 8.6 % (24.0-44.0); MEAN CORPUSCULAR HEMOGLOBIN 34.2 pg (27.0-33.0); MEAN CORPUSCULAR HGB CONC 31.8 g/dl (32.0-36.5); MEAN CORPUSCULAR VOLUME 107.5 fl (80.0-96.0); MONO # 0.2 K/mm3 (0.0-0.8); MONO % 2.4 % (0.0-5.0); NEUTROPHILS # 8.6 K/mm3 (1.8-7.7); NEUTROPHILS % 85.4 % (36.0-66.0); PLATELET COUNT, AUTOMATED 369 k/mm3 (150-450); RED CELL DISTRIBUTION WIDTH 15.7 % (11.5-14.5); WHITE BLOOD COUNT 10.1 K/mm3 (4.0-10.0)
[2016-09-03] MEDS: ENOXAPARIN 80 MG/0.8 ML SYRINGE (J1650) SC SCH ×2 (09:11→21:41)
[2016-09-03] MEDS: PYRIDOXINE 50 MG TAB PO SCH (09:11)
[2016-09-03] MEDS: predniSONE 5 MG TAB PO SCH ×2 (09:11→21:41)
[2016-09-03] MEDS: OMEPRAZOLE 20 MG CAP PO SCH (09:11)
[2016-09-03] MEDS: ACETAMINOPHEN TAB 650MG DOSE (2X325MG) PO PRN ×2 (12:40→21:42)
[2016-09-03 14:00] VITALS: BP 131/70
[2016-09-03] MEDS ORDERED: LOPERAMIDE 2 MG CAP PO PRN (18:30)
[2016-09-03] MEDS ORDERED: CHLORASEPTIC SPRAY MT PRN (18:45)
--- NOTE | 2016-09-03 18:55 | IPN ---
DATE: 09/03/2016 SUBJECTIVE: Mr. Palacio is feeling a little bit uncomfortable today. He has had some abdominal upset and has had more stools. Slightly nauseous and unwell. OBJECTIVE: VITAL SIGNS: Temperature 97.5, pulse 69, respiratory rate 18, blood pressure 119/72, 96% on room air. Intake and output notable for positive fluid balance of 335. Two bowel movements noted yesterday, four thus far today. GENERAL: He is awake, appropriately interactive, a good historian. HEENT: Mucous membranes moist. NECK: Supple. LUNGS: Breathing is symmetrical and rested. HEART: Regular rate and rhythm. ABDOMEN: Soft, hyperactive bowel sounds. Nontender to palpation. LABORATORY DATA: White cell count 10.1, hemoglobin 9.5, platelets of 369. BUN 23, creatinine 1.14. Phosphorus is 1.9. ASSESSMENT: A 71-year-old with norovirus and acute renal failure in the setting of chronic kidney disease stage III with necrotic-range proteinuria secondary to membranous nephropathy status post partial remission. PLAN: 1. The patient has gastroenteritis from norovirus. This had been improving. He is continued on Zofran. Intravenous (IV) fluids are currently discontinued. We could likely give a dose of loperamide for supportive care. 2. The patient is on chronic steroids. Possibility of adrenal insufficiency has been considered during this stay. No clinical evidence of adrenal insufficiency at this time. 3. The patient has resolved acute renal failure. 4. The patient has hypothyroidism on Synthroid. 5. The patient has a history of pulmonary embolism and deep venous thrombosis (DVT). He is on Lovenox home dosing. 6. The patient has gastroesophageal reflux disease (GERD). 7. Will likely discharge the patient tomorrow.
--- NOTE | 2016-09-03 21:05 | EDDOCDS ---
Nurse's Notes [facility] Name: Efren Palacio Age: 71 yrs Sex: Male : 1945 Arrival Date: 09/01/2016 Time: 03:38 Bed 11 Private MD: Diagnosis: Dehydration;Other viral enteritis-Norovirus;Acute kidney failure Presentation: 09/01 03:41 Presenting complaint: EMS states: nausea/vomiting/diarrhea since 0020. Patient reports nn1 chills. Sudden onset. 20G LAC, received 4mg zofran. FSBS 241. Suicide/Homicide risk assessment- the patient denies having any suicidal and/or homicidal ideations and does not present with any other emotional, behavioral or mental health complaints. 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 Transition of care: patient was not received from another setting of care. Care prior to arrival: Medications administered prior to arrival: zofran 4mg IV initiated. Saline lock initiated. Glucose check. 241. 03:41 Acuity: GEOVANI Level 3 nn1 03:41 Method Of Arrival: Ambulance nn1 07:05 Adult Sepsis Screening: The patient does not have new or worsening altered mentation. jc4 Patient has a respiratory rate of greater than or equal to 22 (1 point). Systolic blood pressure is greater than 100. Patient has a qSOFA score of 1- Negative Sepsis Screen. Triage Assessment: 03:50 General: Appears distressed, Behavior is restless, Shaking . General: Appears Behavior nn1 is anxious. Pain: Location: epigastric area Pain currently is 5 out of 10 on a pain scale. Quality of pain is described as aching, dull, Pain began 4 hours ago. The patient is triaged at the bedside. See Assessment in Nurses Notes section of ED record. Neurological: Level of Consciousness is awake, alert, obeys commands, Oriented to person, place, time. Respiratory: Airway is patent Respiratory effort is even, labored, Respiratory pattern is regular, hyperventilation. GI: Abdomen is non- distended Bowel sounds present X 4 quads. Abd is soft X 4 quads Abd is tender to palpation in epigastric area, umbilical area and suprapubic area Reports diarrhea, nausea, vomiting. Derm: Skin is normal. Historical: - Allergies: PORTIA INHIBITORS; SULFA (SULFONAMIDES); arbs; - Home Meds: 1. Synthroid 150 mcg Oral tab once daily 2. omeprazole 20 mg Oral cpDR 1 cap once daily 3. prednisone 5 mg Oral tab 2 times per day 5mg in AM, 2.5mg in PM 4. torsemide 10 mg oral tab 1 tab once daily 5. allopurinol 150mg Oral once daily 6. Tekturna 150 mg oral tab 0.5 tab once daily 7. Lovenox 75 mg Sub-Q syrg every 12 hours 9am & 9pm 8. spironolactone 25 mg Oral tab 1 tab 2 times per day 9. Vitamin D3 2,000 unit oral cap daily 10. Calcium 600 600 mg (1,500 mg) oral tab daily 11. Vitamin B-6 100 mg Oral tab - PMHx: stage 3 kidney disease; DVT; PE; GERD; Gout; Hypothyroidism; - PSHx: lymph node removed from mediastinum; Carpal Tunnel Repair- Right; bronchoscopy; Rotator Cuff Repair- Left; Appendectomy; Colonoscopy; Endoscopy, Upper; - Social history: Smoking status: Patient states was never smoker of tobacco. No barriers to communication noted, The patient speaks fluent Estonian, Speaks appropriately for age. - Family history: Not pertinent. - : The pt / caregiver states he / she is on anticoagulants: Lovenox. Home medication list is obtained from the patient. - Exposure Risk Screening:: None identified. Screenin:53 Screening information is obtained from the patient, family members. Fall risk: No risks nn1 identified. Assistance ADL's: requires no assistance with activities of daily living. Abuse/DV Screen: The patient / caregiver reports he/she is: not in a situation that causes fear, pain or injury. Nutritional screening: No deficits noted. Advance Directives: Currently, there is a health care proxy, Patito Palacio, . home support is adequate. Assessment: 03:53 General: See triage assessment . GI: Abdomen is flat, non- distended Bowel sounds nn1 present X 4 quads. Abd is soft X 4 quads Abd is tender to palpation in epigastric area, umbilical area and suprapubic area. 05:29 General: Patient has vomited twice since zofran administration en route, patient nn1 medicated with more zofran at this time. Patient received 1L IV fluid from EMS. Patient reports gaseousness. . 06:34 General: Provider consulted about fluids, informed this documenter to hold 500mL bolus. nn1 Patient had large bowel movement, stool sample taken. Stools are watery, foul smell. . 07:12 General: Appears uncomfortable, Behavior is appropriate for age, cooperative. Pain: ja5 Location: epigastric area Pain currently is 8 out of 10 on a pain scale. Neurological: Level of Consciousness is awake, alert, Oriented to person, place, time. Cardiovascular: Capillary refill < 3 seconds Heart tones S1 S2 present. Respiratory: Airway is patent Respiratory effort is even, unlabored, Respiratory pattern is regular, symmetrical. Derm: Skin is intact, Skin is pink, warm & dry. 07:52 General: Upon assessing patient I found that patient had an oral temperature of 102.8 ja5 with a HR 120 and patient had complaints of nausea, provider notified, new orders received for tylenol, IV NS bolus and phenergan. . 08:20 General: Phenergan has finished infusing, NS IV bolus is still running, patient states ja5 he is still nauseated and doesn't feel like he can take the PO tylenol. He is resting comfortably in stretcher, is at bedside, call wheeler in reach.. 09:14 General: Patient reports that he is feeling worse at this time. IV bolus infusion is ja5 complete, [facility] He was unsteady during transfer and needed some standby assist. Oral temp was taken, is currently 102.9. 10:02 General: Appears in no apparent distress, Behavior is cooperative, quiet. Neurological: jc4 Level of Consciousness is awake, alert, Oriented to person, place, time. Cardiovascular: Capillary refill < 3 seconds Heart tones S1 S2 present Rhythm is sinus tachycardia No ectopy. Respiratory: Airway is patent Respiratory effort is even, Respiratory pattern is tachypnea Breath sounds are diminished in left posterior lower lobe and right posterior lower lobe. GI: Abdomen is non- distended Reports was just up to the commode to have diarrhea. Derm: Skin is dry, Skin is pink, Skin temperature is hot. 10:03 General: Ice packs placed to bilateral axillae. Dr. Shay made aware of patient vital jc4 signs, interventions. 10:44 General: Pt lying supine on stretcher. States is feeling much more comfortable. Color jc4 pink, skin hot and dry. Respirations easy and full. quality assurance monitor body -sinus tach without ectopy. Saline lock in place. at bedside. 11:20 General: Dr. Messina in to examine patient. jc4 12:15 General: Pt lying on stretcher. Ice packs applied to bilateral axillae. Color flushed, jc4 skin hot and dry. Respirations 24/minute. quality assurance monitor body - sinus tach without ectopy. Pt states just feels weak and tired. 14:30 General: Patient laying in stretcher, states that he is "feeling a little better" and ja5 wants to try eating a popsicle. Temperature has decreased to 99.7, SR on ekg monitor, 95% O2 sat on 2L NC with even unlabored respirations. is at bedisde, call wheeler in reach.. 16:28 General: Patient is in stretcher laying down, respirations even and unlabored, O2 sat ja5 95% on 2L O2 NC, sinus rhythm on ekg monitor, patient denies nausea at this time. Patient requests another popsicle, rashel irasema and water. He is tolerating his PO fluids very well. is at bedside, call wheeler in reach.. 17:56 General: Patient is awake, alert and oriented x3 with no complaints of nausea, his ja5 abdominal pain is 1/10 and he states that it is tolerable for him. O2 sat 95% on 2L O2 NC with even unlabored respirations, SR on ekg monitor, no ectopy noted. Patient is currently awaiting being transferred to his room. is at bedside, call wheeler in reach.. 18:00 General: Appears in no apparent distress, Behavior is appropriate for age, cooperative. ja5 Neurological: Level of Consciousness is awake, alert, Oriented to person, place, time. Cardiovascular: Capillary refill Rhythm is sinus rhythm No ectopy. Respiratory: Airway is patent Respiratory effort is even, unlabored, Respiratory pattern is regular, symmetrical. GI: Abdomen is flat, non- distended Denies intolerance of fluids, nausea, vomiting. Derm: Skin is intact, Skin is pink, warm & dry. 19:33 General: Appears in no apparent distress, Behavior is appropriate for age, cooperative. mv5 General: Pt awaiting transfer to inpatient bed.. Neurological: Level of Consciousness is awake, alert, Oriented to person, place, time. Respiratory: Airway is patent Respiratory effort is even, unlabored, Respiratory pattern is regular, symmetrical. Derm: Skin is pink, warm & dry. 20:02 General: Spoke with hospitalist Austen, given order that pt may transport off monitor mv5 to PCU.. Vital Signs: 03:51 Pulse 119 MON; Resp 22 S; Temp 98.3(TE); Pulse Ox 94% on R/A; Weight 72.57 kg (R); cln Height 5 ft. 6 in. (167.64 cm) (R); Pain 0/10; 04:21 BP 154 / 82 (auto/); ja5 04:21 Pulse 118 MON; Pulse Ox 92% ; ja5 04:22 BP 154 / 82 RA Supine (auto/reg); cln 06:36 Pulse 130 MON; Pulse Ox 91% ; ja5 07:08 BP 120 / 78 (auto/); ja5 07:11 Pulse 120 MON; Pulse Ox 91% ; ja5 07:13 BP 120 / 78; Pulse 120; Resp 20; Temp 102.8(O); Pulse Ox 96% on R/A; Pain 8/10; ja5 09:47 BP 111 / 71 (auto/); ja5 10:01 BP 111 / 72; Pulse 128; Resp 26; Temp 103.2(O); Pulse Ox 90% on R/A; jc4 10:05 Pulse Ox 94% on 2 lpm NC; jc4 10:41 BP 108 / 66 (auto/); ja5 10:42 Pulse 120 MON; ja5 10:44 Temp 100.9(O); jc4 11:41 BP 97 / 67 (auto/); ja5 11:41 Pulse 118 MON; ja5 11:41 BP 101 / 66; Pulse 120; Resp 24; Temp 101.3(O); Pulse Ox 94% ; Pain 0/10; ja5 11:55 BP 101 / 66 (auto/); ja5 11:55 Pulse 122 MON; ja5 12:37 Pulse 118 MON; Pulse Ox 95% ; ja5 12:41 BP 108 / 58 (auto/); ja5 13:41 BP 109 / 66 (auto/); ja5 13:41 Pulse 116 MON; ja5 14:16 Temp 99.7(O); ja5 14:41 BP 91 / 58 (auto/); ja5 14:41 Pulse 118 MON; Pulse Ox 94% ; ja5 14:41 BP 118 / 57; Pulse 107; Resp 24; Temp 100.7(O); Pulse Ox 95% on 2 lpm NC; Pain 0/10; ja5 15:41 BP 98 / 62 (auto/); ja5 15:41 Pulse 112 MON; ja5 16:20 BP 118 / 57 (auto/); ja5 16:20 Pulse 110 MON; ja5 16:41 BP 117 / 61 (auto/); ja5 16:41 Pulse 104 MON; Pulse Ox 94% ; ja5 17:41 BP 109 / 62 (auto/); ja5 17:41 Pulse 106 MON; ja5 17:54 BP 109 / 62; Pulse 107; Resp 20; Temp 100.2(O); Pulse Ox 95% on 2 lpm NC; Pain 1/10; ja5 18:41 BP 105 / 70 (auto/); mv5 18:42 Pulse 114 MON; mv5 03:51 Body Mass Index 25.82 (72.57 kg, 167.64 cm) cln Vitals: 18:47 Log In Time N/A - ambulance arrival. 4 ED Course: 03:39 Patient visited by Rossana Pinto, Tool Specialist. ml3 03:39 Patient moved to Waiting ml3 03:40 Patient moved to 11 ml3 03:44 Triage Initiated nn1 03:50 Pt greeted and oriented to ED. Patient advised of names of staff involved in care, cln location of call wheeler, wait times and NPO status. Accompanied by Family Member, Patient has correct armband on for positive identification. Placed in gown. Bed in low position. Call light in reach. Side rails up X 1. 03:51 Patient visited by Zaina Rogers PCA. cln 03:54 Maintain field IV. Site clean & dry. Gauge & site: 20G LAC . IV with fluids infusing nn1 freely, with good blood return. 04:22 Patient visited by Zaina Rogers PCA. cln 04:44 [facility] was [place] into [employer] and attached to record. hs2 05:30 Patient visited by Fallon Mccoy RN. nn1 06:10 Patient visited by Fallon Mccoy RN. nn1 06:13 Aleksey Palafox DO is Attending Physician. cs11 06:13 Patient visited by Aleksey Palafox DO. cs11 06:26 GASTROINTESTINAL (GI) PANEL Sent. nn1 06:27 Lipase Sent. nn1 06:27 Amylase Sent. nn1 06:27 Liver Profile Sent. nn1 06:27 MED Profile Sent. nn1 06:27 CBC with Diff Sent. nn1 06:56 Patient visited by Fallon Mccoy RN. nn1 06:56 DIFFERENTIAL NO CHARGE Sent. nn1 07:04 Modesta Palomino RN is Primary Nurse. jc4 07:04 Abida Nava RN is Primary Nurse. ja5 07:06 Attending Physician role handed off by Aleksey Palafox DO pc 07:06 Christopher Shay MD is Attending Physician. pc 07:28 Patient visited by Abida Nava RN. ja5 07:50 The patient / caregiver is instructed regarding the plan of care and ED course. jc4 08:25 Patient visited by Abida Nava RN. ja5 09:17 Patient visited by Abida Nava RN. ja5 10:01 Patient visited by Modesta Palomino RN. jc4 10:05 O2 via nasal cannula \\T\\ 2L/min. jc4 10:33 Chest, 1 View Returned. EDMS 10:42 Honorio Messina MD is Hospitalizing Provider. pc 10:54 EKG done. (by ED staff). Reviewed by Christopher Shay MD. jlm 10:55 Patient visited by Fátima Wheeler, Tool Specialist. jlm 18:48 Patient visited by Modesta Palomino RN. jc4 19:02 Primary Nurse role handed off by Modesta Palomino RN jc4 19:02 Primary Nurse role handed off by Abida Nava RN jc4 19:04 Sidra Muñoz,KARI is Primary Nurse. mv5 19:47 No procedures done that require assistance. mv5 09/02 10:19 T-Sheet-- Draft Copy was scanned into [employer] and attached to record. gb 10:19 ECG/EKG was scanned into [employer] and attached to record. gb 10:20 Trend VS was scanned into [employer] and attached to record. gb Administered Medications: 09/01 05:29 Drug: Ondansetron 8 mg [ondansetron HCl 2 mg/mL intravenous solution (3.75 mL)] Route: nn1 IVP; Site: left antecubital; 07:08 Not Given (..): NS 0.9% 500 ml IV at bolus once cs11 07:23 Drug: NS 0.9% 1000 ml [sodium chloride 0.9 % intravenous solution] Route: IV; Rate: ja5 bolus; Site: left antecubital; 09:13 Follow up: IV Status: Completed infusion ja5 07:50 Drug: Promethazine 25 mg [promethazine 25 mg/mL injection solution (1 mL)] Route: IVP; ja5 Site: left antecubital; 08:30 Drug: Acetaminophen 650 mg [acetaminophen 325 mg tablet (2 tabs)] Route: PO; ja5 10:01 Follow up: BP 111 / 72; Pulse 128 bpm; Resp 26 bpm; Temp 103.2 Oral; Pulse Ox 90% RA jc4 08:37 Drug: Enoxaparin (1mg/kg) 75 mg [enoxaparin 100 mg/mL subcutaneous syringe (0.75 mL)] ja5 {Co-Signature: jc4 (Modesta Palomino RN).} Route: Sub-Q; Site: left lower abdomen; 12:30 Drug: NS 0.9% 1000 ml [sodium chloride 0.9 % intravenous solution] Route: IV; Rate: 100 ja5 mL/hr; Site: left antecubital; 12:30 Drug: Acetaminophen 650 mg [acetaminophen 325 mg tablet (2 tabs)] Route: PO; ja5 14:16 Follow up: Temp 99.7 Oral ja5 Attachments: 10:20 Trend VS gb Output: 09/01 11:55 Stool: 1 (Loose Stool) ; Total: 0.00ml. ja5 12:15 Stool: 1 (Loose Stool) ; Total: 0.00ml. jc4 Order Results: Lab Order: CBC with Diff; SPEC'M 09/01/16 03:53 Test: WHITE BLOOD COUNT; Value: 28.3; Range: 4.0-10.0; Abnormal: Above high normal; Units: K/mm3; Status: F Test: RED BLOOD COUNT; Value: 3.58; Range: 4.30-6.10; Abnormal: Below low normal; Units: M/mm3; Status: F Test: HEMOGLOBIN; Value: 12.8; Range: 14.0-18.0; Abnormal: Below low normal; Units: g/dl; Status: F Test: HEMATOCRIT; Value: 39.6; Range: 42.0-52.0; Abnormal: Below low normal; Units: %; Status: F Test: MEAN CORPUSCULAR VOLUME; Value: 110.6; Range: 80.0-96.0; Abnormal: Above high normal; Units: fl; Status: F Test: MEAN CORPUSCULAR HEMOGLOBIN; Value: 35.7; Range: 27.0-33.0; Abnormal: Above high normal; Units: pg; Status: F Test: MEAN CORPUSCULAR HGB CONC; Value: 32.2; Range: 32.0-36.5; Units: g/dl; Status: F Test: RED CELL DISTRIBUTION WIDTH; Value: 15.6; Range: 11.5-14.5; Abnormal: Above high normal; Units: %; Status: F Test: PLATELET COUNT, AUTOMATED; Value: 571; Range: 150-450; Abnormal: Above high normal; Units: k/mm3; Status: F Test: NEUTROPHILS; Value: 84; Range: 35-75; Abnormal: Above high normal; Units: %; Status: F Test: BANDS; Value: 10; Range: < 11; Units: %; Status: F Test: LYMPHOCYTES; Value: 3; Range: 16-52; Abnormal: Below low normal; Units: %; Status: F Test: MONOCYTES; Value: 1; Range: 0-8; Units: %; Status: F Test: EOSINOPHILS; Value: 1; Range: 0-5; Units: %; Status: F Test: BASOPHILS; Value: 1; Range: 0-4; Units: %; Status: F Test: NUCLEATED RED BLOOD CELL; Value: 1; Range: 0-0; Abnormal: Above high normal; Units: %; Status: F Test: RBC MORPHOLOGY; Value: NORMAL; Status: F Test: HYPOCHROMASIA; Value: 1+; Status: F Test: MACROCYTOSIS; Value: 3+; Status: F Test: GIANT PLATELETS; Value: 1+; Status: F Test: PLATELET CLUMPS; Value: SMALL AMT; Status: F Lab Order: MED Profile; SPEC'M 09/01/16 03:53 Test: GLUCOSE, FASTING; Value: 208; Range: 83-110; Abnormal: Above high normal; Units: MG/DL; Status: F Test: BLOOD UREA NITROGEN; Value: 34; Range: 7-18; Abnormal: Above high normal; Units: MG/DL; Status: F Test: CREATININE FOR GFR; Value: 2.06; Range: 0.70-1.30; Abnormal: Above high normal; Units: MG/DL; Status: F Test: GLOMERULAR FILTRATION RATE; Value: 34.1; Range: >42; Abnormal: Below low normal; Status: F Test: SODIUM LEVEL; Value: 141; Range: 136-145; Units: MEQ/L; Status: F Test: POTASSIUM SERUM; Value: 4.1; Range: 3.5-5.1; Units: MEQ/L; Status: F Test: CHLORIDE LEVEL; Value: 106; Range: 98-107; Units: MEQ/L; Status: F Test: CARBON DIOXIDE LEVEL; Value: 21; Range: 21-32; Units: MEQ/L; Status: F Test: ANION GAP; Value: 14; Range: 8-16; Units: MEQ/L; Status: F Test: CALCIUM LEVEL; Value: 9.8; Range: 8.8-10.2; Units: MG/DL; Status: F Test Note: ; Units are mL/min/1.73 m2 Chronic Kidney Disease Staging per NKF: Stage I & II GFR >=60 Normal to Mildly Decreased Stage III GFR 30-59 Moderately Decreased Stage IV GFR 15-29 Severely Decreased Stage V GFR <15 Very Little GFR Left ESRD GFR <15 on OIL TREATER Lab Order: Liver Profile; [facility]09/01[facility]16 03:53 Test: AST/SGOT; Value: 19; Range: 15-37; Units: U/L; Status: F Test: ALT/SGPT; Value: 31; Range: 12-78; Units: U/L; Status: F Test: ALKALINE PHOSPHATASE; Value: 123; Range: 45-117; Abnormal: Above high normal; Units: U/L; Status: F Test: BILIRUBIN,TOTAL; Value: 0.4; Range: 0.2-1.0; Units: MG/DL; Status: F Test: BILIRUBIN,DIRECT; Value: < 0.1; Range: 0.0-0.2; Units: MG/DL; Status: F Test: TOTAL PROTEIN; Value: 9.1; Range: 6.4-8.2; Abnormal: Above high normal; Units: GM/DL; Status: F Test: ALBUMIN; Value: 3.4; Range: 3.2-5.2; Units: GM/DL; Status: F Test: ALBUMIN/GLOBULIN RATIO; Value: 0.60; Range: 1.00-1.93; Abnormal: Below low normal; Status: F Lab Order: Amylase; [facility] 09/01/16 03:53 Test: AMYLASE; Value: 55; Range: 25-115; Units: U/L; Status: F Lab Order: Lipase; [facility] 09/01/16 03:53 Test: LIPASE; Value: 137; Range: 73-393; Units: U/L; Status: F Lab Order: GASTROINTESTINAL (GI) PANEL; [facility] 09/01/16 06:22 Test: GASTROINTESTINAL (GI) PANEL; Value: GI PANEL RESULT POSITIVE by PCR; Status: F Test: GASTROINTESTINAL (GI) PANEL; Value: Comments:; Status: F Test: GASTROINTESTINAL (GI) PANEL; Value: ORGANISM 1: NOROVIRUS; Status: F Test: GASTROINTESTINAL (GI) PANEL; Value: NOROVIRUS; Status: F Test: GASTROINTESTINAL (GI) PANEL; Value: CONSISTENCY OF STOOL CONSISTENCY UNKNOWN.; Status: F Test: GASTROINTESTINAL (GI) PANEL; Value: Norovirus 1 Noroviruses are highly contagious and cause moderate; Status: F Test: GASTROINTESTINAL (GI) PANEL; Value: Norovirus 2 to severe gastroenteritis consisting primarily of; Status: F Test: GASTROINTESTINAL (GI) PANEL; Value: Norovirus 3 nausea, vomiting, and diarrhea with fever.; Status: F Test: GASTROINTESTINAL (GI) PANEL; Value: Norovirus 4 Transmission is fecal-oral or through aerosolized; Status: F Test: GASTROINTESTINAL (GI) PANEL; Value: Norovirus 5 vomitus. Symptoms generally last 24-48 hours and; Status: F Test: GASTROINTESTINAL (GI) PANEL; Value: Norovirus 6 the illness in self-limiting.; Status: F Test Note: ; This Gastrointestinal PCR Panel detects the following bacteria, parasites and viruses: Campylobacter (jejuni, coli and upsaliensis), Clostridium difficile (toxin A/B), Plesiomonas shigelloides, Salmonella, Yersinia enterocolitica, Vibrio (parahaemolyticus, vulnificus and cholerae), Vibrio clolerae, Enteroaggregative E. coli (EAEC), Enteropathogenis E. coli (EPEC), Enterotoxigenic E. coli (ETEC) it/st, Shiga-like producing E. coli (STEC) stx1/stc2, E.coli O157, Shigella/Enteroinvasive E. coli (EIEC), Cryptosporidium, Cyclospora cayetanensis, Entamoeba histolytica, Giardia lamblia, Adenovirus F 40/41, Astrovirus, Norovirus GI/GII, Rotavirus A and Sapovirus (I, II, IV, V). Lab Order: PLATELET ESTIMATE; SPEC' 09/01/16 03:53 Test: PLATELET ESTIMATE; Value: NORMAL; Range: NORMAL; Status: F Lab Order: LACTIC ACID LEVEL, LACTATE; SPEC' 09/01/16 12:54 Test: LACTIC ACID SEPSIS PROTOCOL; Value: 1.5; Range: 0.4-2.0; Units: MMOL/L; Status: F Lab Order: CBC WITH DIFFERENTIAL; SPEC' 09/01/16 12:54 Test: WHITE BLOOD COUNT; Value: 18.0; Range: 4.0-10.0; Abnormal: Above high normal; Units: K/mm3; Status: F Test: RED BLOOD COUNT; Value: 3.39; Range: 4.30-6.10; Abnormal: Below low normal; Units: M/mm3; Status: F Test: HEMOGLOBIN; Value: 11.8; Range: 14.0-18.0; Abnormal: Below low normal; Units: g/dl; Status: F Test: HEMATOCRIT; Value: 37.6; Range: 42.0-52.0; Abnormal: Below low normal; Units: %; Status: F Test: MEAN CORPUSCULAR VOLUME; Value: 111.1; Range: 80.0-96.0; Abnormal: Above high normal; Units: fl; Status: F Test: MEAN CORPUSCULAR HEMOGLOBIN; Value: 34.8; Range: 27.0-33.0; Abnormal: Above high normal; Units: pg; Status: F Test: MEAN CORPUSCULAR HGB CONC; Value: 31.3; Range: 32.0-36.5; Abnormal: Below low normal; Units: g/dl; Status: F Test: RED CELL DISTRIBUTION WIDTH; Value: 16.4; Range: 11.5-14.5; Abnormal: Above high normal; Units: %; Status: F Test: PLATELET COUNT, AUTOMATED; Value: 427; Range: 150-450; Abnormal: Delta; Units: k/mm3; Status: F Test: NEUTROPHILS %; Value: 83.4; Range: 36.0-66.0; Abnormal: Above high normal; Units: %; Status: F Test: LYMPH %; Value: 9.2; Range: 24.0-44.0; Abnormal: Below low normal; Units: %; Status: F Test: MONO %; Value: 4.5; Range: 0.0-5.0; Units: %; Status: F Test: EOS %; Value: 1.8; Range: 0.0-3.0; Units: %; Status: F Test: BASO %; Value: 0.2; Range: 0.0-1.0; Units: %; Status: F Test: LARGE UNSTAINED CELL %; Value: 0.8; Range: 0.0-4.0; Units: %; Status: F Test: NEUTROPHILS #; Value: 15.1; Range: 1.8-7.7; Abnormal: Above high normal; Units: K/mm3; Status: F Test: LYMPH #; Value: 1.8; Range: 1.5-4.5; Units: K/mm3; Status: F Test: MONO #; Value: 0.8; Range: 0.0-0.8; Units: K/mm3; Status: F Test: EOS #; Value: 0.3; Range: 0.0-0.50; Units: K/mm3; Status: F Test: BASO #; Value: 0.0; Range: 0.0-0.2; Units: K/mm3; Status: F Test: LARGE UNSTAINED CELL #; Value: 0.2; Range: 0.0-0.4; Units: K/mm3; Status: F Lab Order: COMPLETE COMPHRENSIVE METABOLI; SPEC'M 09/01/16 12:54 Test: GLUCOSE, FASTING; Value: 107; Range: 83-110; Units: MG/DL; Status: F Test: BLOOD UREA NITROGEN; Value: 41; Range: 7-18; Abnormal: Above high normal; Units: MG/DL; Status: F Test: CREATININE FOR GFR; Value: 3.21; Range: 0.70-1.30; Abnormal: High; Units: MG/DL; Status: F Test: GLOMERULAR FILTRATION RATE; Value: 20.4; Range: >42; Abnormal: Below low normal; Status: F Test: SODIUM LEVEL; Value: 144; Range: 136-145; Units: MEQ/L; Status: F Test: POTASSIUM SERUM; Value: 5.7; Range: 3.5-5.1; Abnormal: Above high normal; Units: MEQ/L; Status: F Test: CHLORIDE LEVEL; Value: 114; Range: 98-107; Abnormal: Above high normal; Units: MEQ/L; Status: F Test: CARBON DIOXIDE LEVEL; Value: 19; Range: 21-32; Abnormal: Below low normal; Units: MEQ/L; Status: F Test: ANION GAP; Value: 11; Range: 8-16; Units: MEQ/L; Status: F Test: CALCIUM LEVEL; Value: 8.2; Range: 8.8-10.2; Units: MG/DL; Status: F Test: AST/SGOT; Value: 17; Range: 15-37; Units: U/L; Status: F Test: ALT/SGPT; Value: 25; Range: 12-78; Units: U/L; Status: F Test: ALKALINE PHOSPHATASE; Value: 100; Range: 45-117; Units: U/L; Status: F Test: BILIRUBIN,TOTAL; Value: 0.4; Range: 0.2-1.0; Units: MG/DL; Status: F Test: TOTAL PROTEIN; Value: 6.6; Range: 6.4-8.2; Abnormal: Delta; Units: GM/DL; Status: F Test: ALBUMIN; Value: 2.8; Range: 3.2-5.2; Abnormal: Below low normal; Units: GM/DL; Status: F Test: ALBUMIN/GLOBULIN RATIO; Value: 0.74; Range: 1.00-1.93; Abnormal: Below low normal; Status: F Test Note: ; Units are mL/min/1.73 m2 Chronic Kidney Disease Staging per NKF: Stage I & II GFR >=60 Normal to Mildly Decreased Stage III GFR 30-59 Moderately Decreased Stage IV GFR 15-29 Severely Decreased Stage V GFR <15 Very Little GFR Left ESRD GFR <15 on OIL TREATER Radiology Order: Chest, 1 View Test: Chest, 1 View REASON FOR EXAMINATION: tachycardia; Clinical: Chest pain and tachycardia .; ; Comparison: 06/07/2016 .; ; Findings:; The mediastinum and cardiac silhouette are stable and within normal limits for; portable technique. The lung ray are clear without acute consolidation,; effusion, or pneumothorax. Skeletal structures are intact.; ; Impression:; Normal portable chest x-ray; ; ; Signed by; Josh Vaughan MD 09/01/2016 10:18 A; Outcome: 10:42 Decision to Hospitalize by Provider. pc 19:47 Discharge Assessment: Patient awake, alert and oriented x 3. No cognitive and/or mv5 functional deficits noted. Patient verbalized understanding of disposition instructions. patient administered narcotics -. 19:47 The following High Risk Discharge criteria are identified: None. Admitted to PCU. mv5 Condition: stable. CT Study completed. Property :Personal belongings accompany Pt. 20:04 Patient left the ED. mv5 Signatures: Dispatcher [employer] EDMS Christopher Shay MD MD pc Margie Trevino, Reg Reg gb Antonietta PintoCarolannGeeta, Tool Specialist Unit ml3 Modesta Palomino, RN RN jc4 Aleksey Palafox, DO cs11 Fátima Wheeelr, Tool Specialist Unit Fallon Rios,RN RN nn1 Dianelys Rivero, Reg Reg hs2 Zaina Rogers, WIC SITE COORDINATOR WIC SITE COORDINATOR Abida TejedaRN RN kerrie5 Sidra MuñozRN RN mv5 Modesta Palomino RN jc4 Corrections: (The following items were deleted from the chart) 16:13 16:09 General: Patient laying in stretcher, states that he is "feeling a little better" ja5 and wants to try eating a popsicle. Temperature has decreased to 99.7, SR on ekg monitor, 95% O2 sat on 2L NC with even unlabored respirations. is at bedisde, call wheeler in reach.. ja5 16:28 13:30 General: Patient laying in stretcher, states that he is "feeling a little better" ja5 and wants to try eating a popsicle. Temperature has decreased to 99.7, SR on ekg monitor, 95% O2 sat on 2L NC with even unlabored respirations. is at bedisde, call liam in reach.. ja5 Chart Complete MTDD
--- NOTE | 2016-09-03 21:05 | EDDOCDS ---
Physician Documentation [facility] Name: Efren Palacio Age: 71 yrs Sex: Male : 1945 Arrival Date: 09/01/2016 Time: 03:38 Bed 11 Private MD: Disposition: 09/01 10:39 Critical Care: Critical care not applicable. Disposition: 09/01/16 10:42 Hospitalization ordered by Honorio Messina for Inpatient Admission. Preliminary diagnosis are Dehydration, Other viral enteritis - Norovirus, Acute kidney failure. - Bed requested for PCU. - Status is Inpatient Admission. mv5 - Condition is Stable. - Problem is new. - Symptoms have improved. Historical: - Allergies: PORTIA INHIBITORS; SULFA (SULFONAMIDES); arbs; - Home Meds: 1. Synthroid 150 mcg Oral tab once daily 2. omeprazole 20 mg Oral cpDR 1 cap once daily 3. prednisone 5 mg Oral tab 2 times per day 5mg in AM, 2.5mg in PM 4. torsemide 10 mg oral tab 1 tab once daily 5. allopurinol 150mg Oral once daily 6. Tekturna 150 mg oral tab 0.5 tab once daily 7. Lovenox 75 mg Sub-Q syrg every 12 hours 9am & 9pm 8. spironolactone 25 mg Oral tab 1 tab 2 times per day 9. Vitamin D3 2,000 unit oral cap daily 10. Calcium 600 600 mg (1,500 mg) oral tab daily 11. Vitamin B-6 100 mg Oral tab - PMHx: stage 3 kidney disease; DVT; PE; GERD; Gout; Hypothyroidism; - PSHx: lymph node removed from mediastinum; Carpal Tunnel Repair- Right; bronchoscopy; Rotator Cuff Repair- Left; Appendectomy; Colonoscopy; Endoscopy, Upper; - Social history: Smoking status: Patient states was never smoker of tobacco. No barriers to communication noted, The patient speaks fluent Bengali, Speaks appropriately for age. - Family history: Not pertinent. - : The pt / caregiver states he / she is on anticoagulants: Lovenox. Home medication list is obtained from the patient. - Exposure Risk Screening:: None identified. Vital Signs: 03:51 Pulse 119 MON; Resp 22 S; Temp 98.3(TE); Pulse Ox 94% on R/A; Weight 72.57 kg / 159.99 cln lbs (R); Height 5 ft. 6 in. (167.64 cm) (R); Pain 0/10; 04:21 BP 154 / 82 (auto/); ja5 04:21 Pulse 118 MON; Pulse Ox 92% ; ja5 04:22 BP 154 / 82 RA Supine (auto/reg); cln 06:36 Pulse 130 MON; Pulse Ox 91% ; ja5 07:08 BP 120 / 78 (auto/); ja5 07:11 Pulse 120 MON; Pulse Ox 91% ; ja5 07:13 BP 120 / 78; Pulse 120; Resp 20; Temp 102.8(O); Pulse Ox 96% on R/A; Pain 8/10; ja5 09:47 BP 111 / 71 (auto/); ja5 10:01 BP 111 / 72; Pulse 128; Resp 26; Temp 103.2(O); Pulse Ox 90% on R/A; jc4 10:05 Pulse Ox 94% on 2 lpm NC; jc4 10:41 BP 108 / 66 (auto/); ja5 10:42 Pulse 120 MON; ja5 10:44 Temp 100.9(O); jc4 11:41 BP 97 / 67 (auto/); ja5 11:41 Pulse 118 MON; ja5 11:41 BP 101 / 66; Pulse 120; Resp 24; Temp 101.3(O); Pulse Ox 94% ; Pain 0/10; ja5 11:55 BP 101 / 66 (auto/); ja5 11:55 Pulse 122 MON; ja5 12:37 Pulse 118 MON; Pulse Ox 95% ; ja5 12:41 BP 108 / 58 (auto/); ja5 13:41 BP 109 / 66 (auto/); ja5 13:41 Pulse 116 MON; ja5 14:16 Temp 99.7(O); ja5 14:41 BP 91 / 58 (auto/); ja5 14:41 Pulse 118 MON; Pulse Ox 94% ; ja5 14:41 BP 118 / 57; Pulse 107; Resp 24; Temp 100.7(O); Pulse Ox 95% on 2 lpm NC; Pain 0/10; ja5 15:41 BP 98 / 62 (auto/); ja5 15:41 Pulse 112 MON; ja5 16:20 BP 118 / 57 (auto/); ja5 16:20 Pulse 110 MON; ja5 16:41 BP 117 / 61 (auto/); ja5 16:41 Pulse 104 MON; Pulse Ox 94% ; ja5 17:41 BP 109 / 62 (auto/); ja5 17:41 Pulse 106 MON; ja5 17:54 BP 109 / 62; Pulse 107; Resp 20; Temp 100.2(O); Pulse Ox 95% on 2 lpm NC; Pain /10; ja5 18:41 BP 105 / 70 (auto/); mv5 18:42 Pulse 114 MON; mv5 03:51 Body Mass Index 25.82 (72.57 kg, 167.64 cm) cln MDM: 04:44 [facility] Payment Agreement was scanned into [employer] and attached to record. hs2 05:25 Ondansetron 8 mg IVP once ordered. nn1 06:14 Financial registration complete. hs2 06:17 IV Saline Lock ordered. cs11 06:17 NS 0.9% 500 ml IV at bolus once ordered. cs11 06:18 CBC with Diff Ordered. EDMS 06:18 MED Profile Ordered. EDMS 06:18 Liver Profile Ordered. EDMS 06:18 Amylase Ordered. EDMS 06:18 Lipase Ordered. EDMS 06:19 GASTROINTESTINAL (GI) PANEL Ordered. EDMS 06:48 DIFFERENTIAL NO CHARGE Ordered. EDMS 06:48 PLATELET ESTIMATE Ordered. EDMS 07:08 CBC with Diff Reviewed. pc 07:08 MED Profile Reviewed. pc 07:08 Liver Profile Reviewed. pc 07:08 Amylase Reviewed. pc 07:08 Lipase Reviewed. pc 07:11 NS 0.9% 1000 ml IV at bolus once ordered. pc 07:15 Acetaminophen Tablet 650 mg PO once ordered. pc 07:28 CBC with Diff Reviewed. pc 07:28 PLATELET ESTIMATE Reviewed. pc 07:29 Promethazine 25 mg IVP once; dilute and administer 30-60 minutes ordered. pc 08:30 Enoxaparin (1mg/kg) 75 mg Sub-Q once; Ensure no Heparin in past 6hrs. Ensure any jc4 baseline labs are drawn. ordered. 10:03 Oxygen 2L via NC, titrate to maintain PO >95% ordered. pc 10:04 Chest, 1 View Ordered. EDMS 10:04 ECG WITH READING ER PHYS+CARDIAG ordered. EDMS 10:04 BED REQUEST+ADM ordered. EDMS 10:39 Data reviewed: lab test results. Test interpretation: LAB - all labs as ordered have pc been reviewed, interpreted and considered in the overall management of the clinical presentation;. The patient has been re-examined and re-evaluated. The patient's symptoms have mildly improved after treatment. Physician consultation: Dr. Honorio Messina MD was contacted at 10:40, regarding admission. Disposition: The historical points, examination findings, and any diagnostic results supporting the provided diagnosis, were discussed with the patient or legal guardian. The need for further work-up and/or treatment in the hospital was explained. 10:52 Test interpretation: EKG. pc 11:14 Test interpretation: X-RAY - interpreted by Radiologist and personally reviewed, 1 view pc chest no acute disease. 11:37 Admission / Observation Status ordered. EDMS 11:39 COMPLETE COMPHRENSIVE METABOLI Ordered. EDMS 11:39 MAGNESIUM LEVEL Ordered. EDMS 11:39 CBC WITH DIFFERENTIAL Ordered. EDMS 11:40 OTHER CUSTOM DIETS ordered. EDMS 12:40 NS 0.9% 1000 ml IV at 100 mL/hr continuous ordered. ja5 12:40 Acetaminophen Tablet 650 mg PO once ordered. ja5 12:44 LACTIC ACID LEVEL, LACTATE Ordered. EDMS 12:44 CBC WITH DIFFERENTIAL Ordered. EDMS 12:44 COMPLETE COMPHRENSIVE METABOLI Ordered. EDMS 19:00 CBC WITH DIFFERENTIAL Reviewed. cs11 19:00 COMPLETE COMPHRENSIVE METABOLI Reviewed. cs11 19:00 GASTROINTESTINAL (GI) PANEL Reviewed. cs11 19:00 LACTIC ACID LEVEL, LACTATE Reviewed. cs11 19:00 Chest, 1 View Reviewed. cs11 19:32 CBC WITH DIFFERENTIAL Ordered. EDMS 19:32 RENAL PROFILE Ordered. EDMS 09/02 10:19 T-Sheet-- Draft Copy was scanned into [employer] and attached to record. gb 10:19 ECG/EKG was scanned into [employer] and attached to record. gb 10:20 Trend VS was scanned into [employer] and attached to record. gb EC/14 10:52 Rate is 122 beats/min. Rhythm is regular, Sinus tachycardia. QRS [place] is Normal. VA pc interval is normal. QRS interval is normal. QT interval is normal. No Q waves. T waves are Normal. No ST changes noted. Clinical impression: Sinus tachycardia. Administered Medications: 05:29 Drug: Ondansetron 8 mg [ondansetron HCl 2 mg/mL intravenous solution (3.75 mL)] Route: nn1 IVP; Site: left antecubital; 07:08 Not Given (..): NS 0.9% 500 ml IV at bolus once cs11 07:23 Drug: NS 0.9% 1000 ml [sodium chloride 0.9 % intravenous solution] Route: IV; Rate: ja5 bolus; Site: left antecubital; 09:13 Follow up: IV Status: Completed infusion ja5 07:50 Drug: Promethazine 25 mg [promethazine 25 mg/mL injection solution (1 mL)] Route: IVP; ja5 Site: left antecubital; 08:30 Drug: Acetaminophen 650 mg [acetaminophen 325 mg tablet (2 tabs)] Route: PO; ja5 10:01 Follow up: BP 111 / 72; Pulse 128 bpm; Resp 26 bpm; Temp 103.2 Oral; Pulse Ox 90% RA jc4 08:37 Drug: Enoxaparin (1mg/kg) 75 mg [enoxaparin 100 mg/mL subcutaneous syringe (0.75 mL)] ja5 {Co-Signature: jc4 (Modesta Palomino RN).} Route: Sub-Q; Site: left lower abdomen; 12:30 Drug: NS 0.9% 1000 ml [sodium chloride 0.9 % intravenous solution] Route: IV; Rate: 100 ja5 mL/hr; Site: left antecubital; 12:30 Drug: Acetaminophen 650 mg [acetaminophen 325 mg tablet (2 tabs)] Route: PO; ja5 14:16 Follow up: Temp 99.7 Oral ja5 Signatures: Dispatcher [employer] EDMS Christopher Shay MD MD pc Barnhardt, Gloria, Reg Reg gb Modesta Palomino RN RN jc4 Aleksey Palafox DO DO cs11 Fallon MccoyRN RN nn1 Marc Calvo RN K[facility] Dianelys Rivero, Reg Reg hs2 Abida Nava RN RN ja5 Sidra Muñoz,RN RN fran5 Modesta Palomino RN jc4 The chart was reviewed and I authenticate all verbal orders and agree with the evaluation and treatment provided.Corrections: (The following items were deleted from the chart) 06:19 06:18 GASTROINTESTINAL (GI) PANEL+LIZETH ordered. EDMS EDMS Attachments: 04:44 [facility] Payment Agreement hs2 09/02 10:19 T-Sheet-- Draft Copy gb 10:19 ECG/EKG gb Chart Complete MTDD
--- NOTE | 2016-09-03 21:05 | EDDOCDS ---
Physician Documentation [facility] Name: Efren Palcaio Age: 71 yrs Sex: Male : 1945 Arrival Date: 09/01/2016 Time: 03:38 Bed 11 Private MD: Disposition: 09/01 10:39 Critical Care: Critical care not applicable. Disposition: 09/01/16 10:42 Hospitalization ordered by Honorio Messina for Inpatient Admission. Preliminary diagnosis are Dehydration, Other viral enteritis - Norovirus, Acute kidney failure. - Bed requested for PCU. - Status is Inpatient Admission. mv5 - Condition is Stable. - Problem is new. - Symptoms have improved. Historical: - Allergies: PORTIA INHIBITORS; SULFA (SULFONAMIDES); arbs; - Home Meds: 1. Synthroid 150 mcg Oral tab once daily 2. omeprazole 20 mg Oral cpDR 1 cap once daily 3. prednisone 5 mg Oral tab 2 times per day 5mg in AM, 2.5mg in PM 4. torsemide 10 mg oral tab 1 tab once daily 5. allopurinol 150mg Oral once daily 6. Tekturna 150 mg oral tab 0.5 tab once daily 7. Lovenox 75 mg Sub-Q syrg every 12 hours 9am & 9pm 8. spironolactone 25 mg Oral tab 1 tab 2 times per day 9. Vitamin D3 2,000 unit oral cap daily 10. Calcium 600 600 mg (1,500 mg) oral tab daily 11. Vitamin B-6 100 mg Oral tab - PMHx: stage 3 kidney disease; DVT; PE; GERD; Gout; Hypothyroidism; - PSHx: lymph node removed from mediastinum; Carpal Tunnel Repair- Right; bronchoscopy; Rotator Cuff Repair- Left; Appendectomy; Colonoscopy; Endoscopy, Upper; - Social history: Smoking status: Patient states was never smoker of tobacco. No barriers to communication noted, The patient speaks fluent Latvian, Speaks appropriately for age. - Family history: Not pertinent. - : The pt / caregiver states he / she is on anticoagulants: Lovenox. Home medication list is obtained from the patient. - Exposure Risk Screening:: None identified. Vital Signs: 03:51 Pulse 119 MON; Resp 22 S; Temp 98.3(TE); Pulse Ox 94% on R/A; Weight 72.57 kg / 159.99 cln lbs (R); Height 5 ft. 6 in. (167.64 cm) (R); Pain 0/10; 04:21 BP 154 / 82 (auto/); ja5 04:21 Pulse 118 MON; Pulse Ox 92% ; ja5 04:22 BP 154 / 82 RA Supine (auto/reg); cln 06:36 Pulse 130 MON; Pulse Ox 91% ; ja5 07:08 BP 120 / 78 (auto/); ja5 07:11 Pulse 120 MON; Pulse Ox 91% ; ja5 07:13 BP 120 / 78; Pulse 120; Resp 20; Temp 102.8(O); Pulse Ox 96% on R/A; Pain 8/10; ja5 09:47 BP 111 / 71 (auto/); ja5 10:01 BP 111 / 72; Pulse 128; Resp 26; Temp 103.2(O); Pulse Ox 90% on R/A; jc4 10:05 Pulse Ox 94% on 2 lpm NC; jc4 10:41 BP 108 / 66 (auto/); ja5 10:42 Pulse 120 MON; ja5 10:44 Temp 100.9(O); jc4 11:41 BP 97 / 67 (auto/); ja5 11:41 Pulse 118 MON; ja5 11:41 BP 101 / 66; Pulse 120; Resp 24; Temp 101.3(O); Pulse Ox 94% ; Pain 0/10; ja5 11:55 BP 101 / 66 (auto/); ja5 11:55 Pulse 122 MON; ja5 12:37 Pulse 118 MON; Pulse Ox 95% ; ja5 12:41 BP 108 / 58 (auto/); ja5 13:41 BP 109 / 66 (auto/); ja5 13:41 Pulse 116 MON; ja5 14:16 Temp 99.7(O); ja5 14:41 BP 91 / 58 (auto/); ja5 14:41 Pulse 118 MON; Pulse Ox 94% ; ja5 14:41 BP 118 / 57; Pulse 107; Resp 24; Temp 100.7(O); Pulse Ox 95% on 2 lpm NC; Pain 0/10; ja5 15:41 BP 98 / 62 (auto/); ja5 15:41 Pulse 112 MON; ja5 16:20 BP 118 / 57 (auto/); ja5 16:20 Pulse 110 MON; ja5 16:41 BP 117 / 61 (auto/); ja5 16:41 Pulse 104 MON; Pulse Ox 94% ; ja5 17:41 BP 109 / 62 (auto/); ja5 17:41 Pulse 106 MON; ja5 17:54 BP 109 / 62; Pulse 107; Resp 20; Temp 100.2(O); Pulse Ox 95% on 2 lpm NC; Pain /10; ja5 18:41 BP 105 / 70 (auto/); mv5 18:42 Pulse 114 MON; mv5 03:51 Body Mass Index 25.82 (72.57 kg, 167.64 cm) cln MDM: 04:44 [facility] Payment Agreement was scanned into [employer] and attached to record. hs2 05:25 Ondansetron 8 mg IVP once ordered. nn1 06:14 Financial registration complete. hs2 06:17 IV Saline Lock ordered. cs11 06:17 NS 0.9% 500 ml IV at bolus once ordered. cs11 06:18 CBC with Diff Ordered. EDMS 06:18 MED Profile Ordered. EDMS 06:18 Liver Profile Ordered. EDMS 06:18 Amylase Ordered. EDMS 06:18 Lipase Ordered. EDMS 06:19 GASTROINTESTINAL (GI) PANEL Ordered. EDMS 06:48 DIFFERENTIAL NO CHARGE Ordered. EDMS 06:48 PLATELET ESTIMATE Ordered. EDMS 07:08 CBC with Diff Reviewed. pc 07:08 MED Profile Reviewed. pc 07:08 Liver Profile Reviewed. pc 07:08 Amylase Reviewed. pc 07:08 Lipase Reviewed. pc 07:11 NS 0.9% 1000 ml IV at bolus once ordered. pc 07:15 Acetaminophen Tablet 650 mg PO once ordered. pc 07:28 CBC with Diff Reviewed. pc 07:28 PLATELET ESTIMATE Reviewed. pc 07:29 Promethazine 25 mg IVP once; dilute and administer 30-60 minutes ordered. pc 08:30 Enoxaparin (1mg/kg) 75 mg Sub-Q once; Ensure no Heparin in past 6hrs. Ensure any jc4 baseline labs are drawn. ordered. 10:03 Oxygen 2L via NC, titrate to maintain PO >95% ordered. pc 10:04 Chest, 1 View Ordered. EDMS 10:04 ECG WITH READING ER PHYS+CARDIAG ordered. EDMS 10:04 BED REQUEST+ADM ordered. EDMS 10:39 Data reviewed: lab test results. Test interpretation: LAB - all labs as ordered have pc been reviewed, interpreted and considered in the overall management of the clinical presentation;. The patient has been re-examined and re-evaluated. The patient's symptoms have mildly improved after treatment. Physician consultation: Dr. Honorio Messina MD was contacted at 10:40, regarding admission. Disposition: The historical points, examination findings, and any diagnostic results supporting the provided diagnosis, were discussed with the patient or legal guardian. The need for further work-up and/or treatment in the hospital was explained. 10:52 Test interpretation: EKG. pc 11:14 Test interpretation: X-RAY - interpreted by Radiologist and personally reviewed, 1 view pc chest no acute disease. 11:37 Admission / Observation Status ordered. EDMS 11:39 COMPLETE COMPHRENSIVE METABOLI Ordered. EDMS 11:39 MAGNESIUM LEVEL Ordered. EDMS 11:39 CBC WITH DIFFERENTIAL Ordered. EDMS 11:40 OTHER CUSTOM DIETS ordered. EDMS 12:40 NS 0.9% 1000 ml IV at 100 mL/hr continuous ordered. ja5 12:40 Acetaminophen Tablet 650 mg PO once ordered. ja5 12:44 LACTIC ACID LEVEL, LACTATE Ordered. EDMS 12:44 CBC WITH DIFFERENTIAL Ordered. EDMS 12:44 COMPLETE COMPHRENSIVE METABOLI Ordered. EDMS 19:00 CBC WITH DIFFERENTIAL Reviewed. cs11 19:00 COMPLETE COMPHRENSIVE METABOLI Reviewed. cs11 19:00 GASTROINTESTINAL (GI) PANEL Reviewed. cs11 19:00 LACTIC ACID LEVEL, LACTATE Reviewed. cs11 19:00 Chest, 1 View Reviewed. cs11 19:32 CBC WITH DIFFERENTIAL Ordered. EDMS 19:32 RENAL PROFILE Ordered. EDMS 09/02 10:19 T-Sheet-- Draft Copy was scanned into [employer] and attached to record. gb 10:19 ECG/EKG was scanned into [employer] and attached to record. gb 10:20 Trend VS was scanned into [employer] and attached to record. gb EC/14 10:52 Rate is 122 beats/min. Rhythm is regular, Sinus tachycardia. QRS [place] is Normal. [place] pc interval is normal. QRS interval is normal. QT interval is normal. No Q waves. T waves are Normal. No ST changes noted. Clinical impression: Sinus tachycardia. Administered Medications: 05:29 Drug: Ondansetron 8 mg [ondansetron HCl 2 mg/mL intravenous solution (3.75 mL)] Route: nn1 IVP; Site: left antecubital; 07:08 Not Given (..): NS 0.9% 500 ml IV at bolus once cs11 07:23 Drug: NS 0.9% 1000 ml [sodium chloride 0.9 % intravenous solution] Route: IV; Rate: ja5 bolus; Site: left antecubital; 09:13 Follow up: IV Status: Completed infusion ja5 07:50 Drug: Promethazine 25 mg [promethazine 25 mg/mL injection solution (1 mL)] Route: IVP; ja5 Site: left antecubital; 08:30 Drug: Acetaminophen 650 mg [acetaminophen 325 mg tablet (2 tabs)] Route: PO; ja5 10:01 Follow up: BP 111 / 72; Pulse 128 bpm; Resp 26 bpm; Temp 103.2 Oral; Pulse Ox 90% RA jc4 08:37 Drug: Enoxaparin (1mg/kg) 75 mg [enoxaparin 100 mg/mL subcutaneous syringe (0.75 mL)] ja5 {Co-Signature: jc4 (Modesta Palomino RN).} Route: Sub-Q; Site: left lower abdomen; 12:30 Drug: NS 0.9% 1000 ml [sodium chloride 0.9 % intravenous solution] Route: IV; Rate: 100 ja5 mL/hr; Site: left antecubital; 12:30 Drug: Acetaminophen 650 mg [acetaminophen 325 mg tablet (2 tabs)] Route: PO; ja5 14:16 Follow up: Temp 99.7 Oral ja5 Signatures: Dispatcher [employer] EDMS Christopher Shay MD MD pc Barnhardt, Gloria, Reg Reg gb Modesta Palomino RN RN jc4 Aleksey Palafox DO DO cs11 Fallon MccoyRN RN nn1 Marc Calvo RN KARI [facility] Dianelys Rivero, Reg Reg hs2 Abida Nava RN RN ja5 Sidra Muñoz,RN RN fran5 Modesta Palomino RN jc4 The chart was reviewed and I authenticate all verbal orders and agree with the evaluation and treatment provided.Corrections: (The following items were deleted from the chart) 06:19 06:18 GASTROINTESTINAL (GI) PANEL+LIZETH ordered. EDMS EDMS Attachments: 04:44 [facility] Payment Agreement hs2 09/02 10:19 T-Sheet-- Draft Copy gb 10:19 ECG/EKG gb Chart Complete MTDD
[2016-09-03 22:00] VITALS: BP 136/78
[2016-09-04] MEDS: LEVOTHYROXINE 0.15 MG TAB (150 MCG) PO SCH (05:44)
[2016-09-04 06:00] VITALS: BP 139/84
[2016-09-04 06:15] LABS: BASO % 0.2 % (0.0-1.0); EOS # 0.2 K/mm3 (0.0-0.50); EOS % 1.6 % (0.0-3.0); LARGE UNSTAINED CELL # 0.3 K/mm3 (0.0-0.4); LARGE UNSTAINED CELL % 2.3 % (0.0-4.0); LYMPH # 0.9 K/mm3 (1.5-4.5); LYMPH % 7.9 % (24.0-44.0); MEAN CORPUSCULAR HEMOGLOBIN 34.6 pg (27.0-33.0); MEAN CORPUSCULAR HGB CONC 32.5 g/dl (32.0-36.5); MEAN CORPUSCULAR VOLUME 106.5 fl (80.0-96.0); MONO # 0.3 K/mm3 (0.0-0.8); MONO % 2.9 % (0.0-5.0); NEUTROPHILS # 9.6 K/mm3 (1.8-7.7); NEUTROPHILS % 85.2 % (36.0-66.0); PLATELET COUNT, AUTOMATED 362 k/mm3 (150-450); RED CELL DISTRIBUTION WIDTH 15.6 % (11.5-14.5); WHITE BLOOD COUNT 11.3 K/mm3 (4.0-10.0)
[2016-09-04 06:34] LABS: ALBUMIN 2.4 GM/DL (3.2-5.2); ANION GAP 10 MEQ/L (8-16); BLOOD UREA NITROGEN 15 MG/DL (7-18); CALCIUM LEVEL 8.2 MG/DL (8.8-10.2); CARBON DIOXIDE LEVEL 22 MEQ/L (21-32); CHLORIDE LEVEL 107 MEQ/L (98-107); GLOMERULAR FILTRATION RATE > 60.0 (>42); GLUCOSE, FASTING 92 MG/DL (83-110); PHOSPHORUS LEVEL 2.6 MG/DL (2.5-4.9); SODIUM LEVEL 139 MEQ/L (136-145)
[2016-09-04] MEDS: ENOXAPARIN 80 MG/0.8 ML SYRINGE (J1650) SC SCH ×2 (08:23→20:38)
[2016-09-04] MEDS: OMEPRAZOLE 20 MG CAP PO SCH (08:23)
[2016-09-04] MEDS: ACETAMINOPHEN TAB 650MG DOSE (2X325MG) PO PRN ×3 (08:23→21:38)
[2016-09-04] MEDS: PYRIDOXINE 50 MG TAB PO SCH (08:23)
[2016-09-04] MEDS: predniSONE 5 MG TAB PO SCH ×2 (08:23→20:37)
[2016-09-04 14:00] VITALS: BP 127/77
[2016-09-04] MEDS: NS 1,000 ML IV SCH ×2 (14:52→20:38)
--- NOTE | 2016-09-04 15:35 | IPN ---
DATE: 09/04/2016 Mr. Palacio continues to feel nauseous this morning. He has had loose stools and has been febrile. He feels weak and tired. He complained of sore throat last evening which is somewhat improved today. Maximum temperature is 101.7, current temperature (T-current) 100.4, pulse 83, respiratory rate 19, blood pressure 139/84, 95% on room air. Intake and output notable for positive fluid balance of 310, four bowel movements yesterday. He is awake, appropriately interactive, tired appearing. Mucous membranes moist. Neck supple. Breathing is symmetrical, somewhat diminished with bibasilar crackles with no wheezes, rales, or rhonchi, speaking in complete sentences, no accessory muscle use. Heart is in a regular rate and rhythm, normal S1, S2. Abdomen soft, doughy, hypoactive bowel sounds, nontender. White cell count 11.3, hemoglobin 10.4, platelets 362, BUN 15, creatinine 1.1. 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 Plan is as follows: 1. The patient has gastroenteritis from Norovirus and new fever. The cause of this remains unclear. Will check blood cultures. Will check urinalysis and urine culture. He is not having urinary symptoms but the patient is in a relatively immunocompromised state due to his chronic steroid use. Will also check a chest xray as he has new lung findings today. 2. The patient has chronic steroids. No obvious evidence of adrenal insufficiency at this point. Will be monitored clinically. 3. The patient has resolved acute renal failure. 4. The patient has hypothyroidism, on Synthroid. 5. The patient has history of pulmonary embolism and deep venous thrombosis (DVT), on Lovenox home dosing. 6. The patient has gastroesophageal reflux disease (GERD). 7. Discharge is obviously canceled for today based on his change in status.
--- NOTE | 2016-09-04 17:05 | REP ---
Clinical: Fever and chest pain . Comparison: 09/01/2016 . Technique: PA and lateral. Findings: The mediastinum and cardiac silhouette are normal. Trace left basilar/retrocardiac atelectasis cannot be excluded and should be correlated clinically. No effusion. No pneumothorax. Skeletal structures intact. Impression: 1. Trace left lower lobe/retrocardiac atelectasis. Signed by Josh Vaughan MD 09/04/2016 04:57 P
[2016-09-04 22:00] VITALS: BP 141/77
[2016-09-05 02:13] VITALS: BP 139/83
[2016-09-05] MEDS: ACETAMINOPHEN TAB 650MG DOSE (2X325MG) PO PRN ×3 (04:03→21:10)
[2016-09-05] MEDS: LEVOTHYROXINE 0.15 MG TAB (150 MCG) PO SCH (05:48)
[2016-09-05 05:53] VITALS: BP 110/66
[2016-09-05 07:02] LABS: ALBUMIN 2.2 GM/DL (3.2-5.2); ANION GAP 10 MEQ/L (8-16); BLOOD UREA NITROGEN 17 MG/DL (7-18); CARBON DIOXIDE LEVEL 21 MEQ/L (21-32); CHLORIDE LEVEL 104 MEQ/L (98-107); CREATININE FOR GFR 1.23 MG/DL (0.70-1.30); GLOMERULAR FILTRATION RATE > 60.0 (>42); GLUCOSE, FASTING 111 MG/DL (83-110); PHOSPHORUS LEVEL 3.2 MG/DL (2.5-4.9); POTASSIUM SERUM 4.2 MEQ/L (3.5-5.1); SODIUM LEVEL 135 MEQ/L (136-145)
[2016-09-05 07:05] LABS: BASO % 0.1 % (0.0-1.0); EOS # 0.1 K/mm3 (0.0-0.50); EOS % 0.8 % (0.0-3.0); LARGE UNSTAINED CELL # 0.2 K/mm3 (0.0-0.4); LARGE UNSTAINED CELL % 1.9 % (0.0-4.0); LYMPH # 1.3 K/mm3 (1.5-4.5); LYMPH % 8.5 % (24.0-44.0); MEAN CORPUSCULAR HEMOGLOBIN 34.7 pg (27.0-33.0); MEAN CORPUSCULAR HGB CONC 32.4 g/dl (32.0-36.5); MEAN CORPUSCULAR VOLUME 107.1 fl (80.0-96.0); MONO # 0.4 K/mm3 (0.0-0.8); MONO % 3.2 % (0.0-5.0); NEUTROPHILS # 11.1 K/mm3 (1.8-7.7); NEUTROPHILS % 85.5 % (36.0-66.0); PLATELET COUNT, AUTOMATED 313 k/mm3 (150-450); RED CELL DISTRIBUTION WIDTH 15.9 % (11.5-14.5)
[2016-09-05] MEDS: PYRIDOXINE 50 MG TAB PO SCH (08:53)
[2016-09-05] MEDS: predniSONE 5 MG TAB PO SCH ×2 (08:53→20:12)
[2016-09-05] MEDS: ENOXAPARIN 80 MG/0.8 ML SYRINGE (J1650) SC SCH ×2 (08:53→21:10)
[2016-09-05] MEDS: OMEPRAZOLE 20 MG CAP PO SCH (08:53)
--- NOTE | 2016-09-05 10:09 | REP ---
Clinical: Fever and chest pain . Comparison: 09/04/2016 . Technique: PA and lateral. Findings: The mediastinum and cardiac silhouette are normal. The lung ray are clear and without acute consolidation, effusion, or pneumothorax. Previously noted left lower lobe/retrocardiac atelectasis resolved. The skeletal structures are intact and normal. Impression: 1. No acute cardiopulmonary process. Signed by Josh Vaughan MD 09/05/2016 10:00 A
[2016-09-05 14:00] VITALS: BP 119/75
[2016-09-05] MEDS: NS 1,000 ML IV SCH (15:00)
[2016-09-05 22:00] VITALS: BP 103/69
[2016-09-06] MEDS: NS 1,000 ML IV SCH (04:15)
[2016-09-06] MEDS: LEVOTHYROXINE 0.15 MG TAB (150 MCG) PO SCH (05:46)
[2016-09-06] MEDS: ACETAMINOPHEN TAB 650MG DOSE (2X325MG) PO PRN (05:47)
[2016-09-06 06:00] VITALS: BP 119/78
[2016-09-06 06:39] LABS: BASO % 0.2 % (0.0-1.0); EOS # 0.1 K/mm3 (0.0-0.50); EOS % 1.1 % (0.0-3.0); LARGE UNSTAINED CELL # 0.2 K/mm3 (0.0-0.4); LARGE UNSTAINED CELL % 1.8 % (0.0-4.0); LYMPH # 1.5 K/mm3 (1.5-4.5); LYMPH % 11.2 % (24.0-44.0); MEAN CORPUSCULAR HEMOGLOBIN 34.7 pg (27.0-33.0); MEAN CORPUSCULAR HGB CONC 32.2 g/dl (32.0-36.5); MEAN CORPUSCULAR VOLUME 107.9 fl (80.0-96.0); MONO # 0.4 K/mm3 (0.0-0.8); MONO % 3.1 % (0.0-5.0); NEUTROPHILS # 9.6 K/mm3 (1.8-7.7); NEUTROPHILS % 82.5 % (36.0-66.0); PLATELET COUNT, AUTOMATED 312 k/mm3 (150-450); RED CELL DISTRIBUTION WIDTH 15.7 % (11.5-14.5); WHITE BLOOD COUNT 11.6 K/mm3 (4.0-10.0)
[2016-09-06 06:43] LABS: ALBUMIN 2.2 GM/DL (3.2-5.2); ANION GAP 7 MEQ/L (8-16); BLOOD UREA NITROGEN 14 MG/DL (7-18); CALCIUM LEVEL 8.7 MG/DL (8.8-10.2); CARBON DIOXIDE LEVEL 23 MEQ/L (21-32); CHLORIDE LEVEL 107 MEQ/L (98-107); CREATININE FOR GFR 0.96 MG/DL (0.70-1.30); GLOMERULAR FILTRATION RATE > 60.0 (>42); GLUCOSE, FASTING 102 MG/DL (83-110); PHOSPHORUS LEVEL 2.6 MG/DL (2.5-4.9); POTASSIUM SERUM 4.1 MEQ/L (3.5-5.1); SODIUM LEVEL 137 MEQ/L (136-145)
[2016-09-06] MEDS: ENOXAPARIN 80 MG/0.8 ML SYRINGE (J1650) SC SCH (09:01)
[2016-09-06] MEDS: predniSONE 5 MG TAB PO SCH (09:02)
[2016-09-06] MEDS: OMEPRAZOLE 20 MG CAP PO SCH (09:02)
[2016-09-06] MEDS: PYRIDOXINE 50 MG TAB PO SCH (09:02)
--- NOTE | 2016-09-06 10:47 | IPN ---
DATE: 09/05/2016 Mr. Palacio has continued to be febrile over the course of the night. He is feeling slightly better, a little bit stronger, not complaining of any cough. No chest pain. He has no dysuria. No abdominal pain. He continued to have bowel movements yesterday, none thus far today. Temperature is 97.4 most recently, overnight went as high as 102.3, pulse 82, respiratory rate 18, blood pressure 110/66, 94% on room air. Intake and output notable for a positive fluid balance of 350, 3 bowel movements yesterday. He is awake, appropriately interactive, pleasantly conversant. Mucous membranes moist. Neck supple. Breathing is symmetrical, rested, with somewhat diminished aeration in the left base. No wheezes, rales or rhonchi. Some upper airway sounds are noted. Heart is distant sounding. Normal S1, S2. Abdomen soft, doughy, nontender. White cell count 13, hemoglobin 9.8 and platelets 313. Sodium 135, creatinine 1.23 - still in the normal range but trending up slightly. Chest x-ray for today shows no acute process. Left lower lobe atelectasis is resolved. 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 PLAN: 1. Patient's gastroenteritis is improving, although he continues to have fevers. This may be related to his underlying relative immunocompromise. Chest x-ray shows no advancement from yesterday. I suspect that he has atelectasis. I have already ordered incentive spirometer and encouraged him to be out of bed and when he is in bed to use the incentive spirometer. 2. Patient is on chronic steroids. No evidence of adrenal insufficiency at this point. He was given additional steroid doses during the beginning of his stay. 3. The patient has resolved acute renal failure, although it is trending towards increasing creatinine levels. This will be monitored clinically. 4. The patient has hypothyroidism, on Synthroid. 5. The patient has history of pulmonary embolism and deep venous thrombosis (DVT), on Lovenox chronically, continuing his home dosing. 6. The patient has gastroesophageal reflux disease (GERD). 7. The patient continues to be febrile and based on his renal function and underlying immunocompromise I believe it would be prudent to watch him one more night in the hospital.
[2016-09-06] MEDS ORDERED: ZOFR20TA PO (13:55)
--- NOTE | 2016-09-08 04:41 | DSES ---
DATE OF ADMISSION: 09/01/2016 DATE OF DISCHARGE: 09/06/2016 There were no specialists involved in her care. No complications of her stay. No procedures performed during her stay. Discharge diagnoses is: 1. Norovirus. 2. Chronic kidney disease, stage III with nephrotic range proteinuria secondary to membranous nephropathy status post partial remission. 3. History of deep venous thrombosis (DVT) and pulmonary embolism (PE). 4. Mediastinal lymphadenopathy. 5. Hypothyroidism. 6. Dyslipidemia. 7. Hypertension. The following is a summary of his hospitalization: This is a 71-year-old with membranous nephropathy in partial remission who presented with vomiting and loose stool of sudden onset. Gastrointestinal (GI) panel showed that he had norovirus. He had development of acute renal failure at the time of admission, was admitted to the hospitalist service because of chronic steroid use, was treated for adrenal insufficiency with additional steroids. He was followed in the hospital, continued to febrile, went on to have a respiratory panel, which was negative. Chest x-ray, which showed atelectasis, which was resolved with an x-ray done the following day. Diet was advanced. Renal function improved to baseline. Leukocytosis, which at the time of presentation was notable for a white cell count of 28,000 was down to 11,000 on the day of discharge, which is basically his baseline as it looks to be over the last 6 months his white cell count has been usually elevated. Renal function, which showed a creatinine of 3.21 on the day of admission was done to 0.96 on the day of discharge. Blood cultures, which were drawn on 09/04/2016, were negative at the time of discharge. On the evening prior to discharge, he did have a temperature to 102, although this was thought to be related to his ongoing viral illness. On day of discharge, he has had some nausea with eating. No further loose stools. He did receive one dose of loperamide in the hospital and feels ready to go home. Temperature is 99.6, pulse 76, respiratory rate 18, blood pressure 119/78, 97% on room air. Intake and output notable for a positive fluid balance of 610. No bowel movements on day prior to discharge. Awake, alert, appropriately interactive, walking around his room. Mucous membranes moist. Neck supple. Breathing symmetrical and rested. Heart is in a regular rate and rhythm. Abdomen is soft, doughy, nontender. Sodium is 137, creatinine 0.96, white cell count 11.6, hemoglobin 10.1, and platelets of 312. Discharge instructions include the following: Followup with Dr. Skinner this week. Diet and activity as tolerated. He was given a prescription for Zofran 4 mg by mouth every 6 hours as needed for nausea and vomiting. Continue his Tekturna 75 mg by mouth daily, allopurinol 150 mg by mouth daily, calcium supplement at bedtime, vitamin D supplement daily at bedtime, Lovenox 75 mg every 12 hours, Synthroid 150 mcg every morning daily, omeprazole 20 mg by mouth daily, prednisone 5 mg by mouth twice daily, vitamin B6 100 mg by mouth daily, spironolactone 25 mg by mouth twice daily, and torsemide 10 mg by mouth daily.
== END 2016-09-06 16:05 | disposition home or self-care (01) | DRG 392 ==
LOC: M ED 03:38 → M ED INP 11:35 → M PCU 20:15 → M MSPAV 09-02 17:25
PROVIDERS: ADMIT Internal Medicine; ATTEND Internal Medicine
DX: A08.11 Acute gastroenteropathy due to Norwalk agent (principal); N17.9 Acute kidney failure, unspecified; E27.40 Unspecified adrenocortical insufficiency; N02.2 Recurrent and persistent hematuria with diffuse membranous glomerulonephritis; I12.9 Hypertensive chronic kidney disease with stage 1 through stage 4 chronic kidney disease, or unspecified chronic kidney disease; E78.5 Hyperlipidemia, unspecified; E03.9 Hypothyroidism, unspecified; N18.3 Chronic kidney disease, stage 3 (moderate); K21.9 Gastro-esophageal reflux disease without esophagitis; T38.0X5A Adverse effect of glucocorticoids and synthetic analogues, initial encounter; R59.0 Localized enlarged lymph nodes; Z86.711 Personal history of pulmonary embolism; Z86.718 Personal history of other venous thrombosis and embolism; Z87.891 Personal history of nicotine dependence; Z79.51 Long term (current) use of inhaled steroids; Z79.899 Other long term (current) drug therapy

== ENCOUNTER → 2016-10-23 | Outpatient (REF) | payer MEDICARE, OTHER ==
[~2016-10-23] MED LIST changes: +PYRI100T2 PO; +ZOFR20TA PO
[2016-10-25 00:06] LABS: Lyme Disease IgG/IgM Antibodie <0.91 ISR (0.00-0.90); Lyme Disease IgM Ab Quantitati <0.80 index (0.00-0.79)
== END ==
LOC: M LAB REF 12:13
PROVIDERS: ATTEND Internal Medicine
DX: M06.4 Inflammatory polyarthropathy (principal); R63.4 Abnormal weight loss; R50.9 Fever, unspecified

== ENCOUNTER 2016-11-08 08:54 | Emergency (ER) | payer MEDICARE, BC, OTHER ==
[2016-11-08] MEDS ORDERED: ONDANSETRON 4MG/2ML VIAL (J2405) IV ONE (09:15)
[2016-11-08] MEDS ORDERED: ENOXAPARIN 60 MG/0.6 ML SYR (J1650) SC ONE (09:15)
[2016-11-08] MEDS ORDERED: [UNRECOGNIZED DRUG - CODE] IM (09:17)
[2016-11-08] MEDS ORDERED: CART120C (09:17)
[2016-11-08] MEDS: MORPHINE 4 MG/ML 1ML SYRINGE IV PRN ×2 (09:30→10:18)
[2016-11-08 09:40] LABS: BASO % 0.2 % (0.0-1.0); EOS # 0.2 K/mm3 (0.0-0.50); EOS % 1.4 % (0.0-3.0); LARGE UNSTAINED CELL # 0.2 K/mm3 (0.0-0.4); LARGE UNSTAINED CELL % 1.2 % (0.0-4.0); LYMPH # 2.2 K/mm3 (1.5-4.5); LYMPH % 12.7 % (24.0-44.0); MEAN CORPUSCULAR HEMOGLOBIN 34.9 pg (27.0-33.0); MEAN CORPUSCULAR HGB CONC 31.9 g/dl (32.0-36.5); MEAN CORPUSCULAR VOLUME 109.1 fl (80.0-96.0); MONO # 0.5 K/mm3 (0.0-0.8); MONO % 2.8 % (0.0-5.0); NEUTROPHILS # 13.1 K/mm3 (1.8-7.7); NEUTROPHILS % 81.6 % (36.0-66.0); PLATELET COUNT, AUTOMATED 340 k/mm3 (150-450); RED CELL DISTRIBUTION WIDTH 15.2 % (11.5-14.5)
[2016-11-08 09:58] LABS: ALBUMIN 3.1 GM/DL (3.2-5.2); ALBUMIN/GLOBULIN RATIO 0.54 (1.00-1.93); ALKALINE PHOSPHATASE 229 U/L (45-117); ALT/SGPT 39 U/L (12-78); ANION GAP 10 MEQ/L (8-16); AST/SGOT 17 U/L (15-37); BILIRUBIN,DIRECT 0.1 MG/DL (0.0-0.2); BILIRUBIN,TOTAL 0.5 MG/DL (0.2-1.0); BLOOD UREA NITROGEN 22 MG/DL (7-18); CALCIUM LEVEL 9.7 MG/DL (8.8-10.2); CARBON DIOXIDE LEVEL 22 MEQ/L (21-32); CHLORIDE LEVEL 101 MEQ/L (98-107); CREATININE FOR GFR 1.12 MG/DL (0.70-1.30); GLOMERULAR FILTRATION RATE > 60.0 (>42); GLUCOSE, FASTING 104 MG/DL (83-110); POTASSIUM SERUM 3.9 MEQ/L (3.5-5.1); SODIUM LEVEL 133 MEQ/L (136-145); TOTAL PROTEIN 8.8 GM/DL (6.4-8.2)
--- NOTE | 2016-11-08 09:58 | REP ---
Portable chest, AP view, patient sitting: Comparison is 09/05/2016. The lung ray are clear. The cardiac size is normal. The saul, mediastinum, and bony thorax are unremarkable. Impression: Negative portable chest. No interval change. Signed by Mihir Mooney MD 11/08/2016 09:50 A
[2016-11-08] MEDS ORDERED: MORPHINE 4 MG/ML 1ML SYRINGE IV ONE (10:15)
--- NOTE | 2016-11-08 10:27 | REP ---
Bilateral lower extremity deep vein duplex ultrasound: Comparisons 06/03/2016. There is nonocclusive intraluminal thrombus on the right from the popliteal vein to the common femoral vein. This is unchanged from the prior study. The left lower extremity deep veins demonstrate normal compression, normal Doppler color flow and normal Doppler waveforms with respiration augmentation at multiple levels from the popliteal vein to the common femoral vein. Impression: Extensive nonocclusive thrombus extending from the right popliteal vein to the right common femoral vein, unchanged from 06/03/2016, therefore likely organized thrombus. There is no deep vein thrombus in the left lower extremity. This is unchanged. Signed by Mihir Mooney MD 11/08/2016 10:18 A
[2016-11-08] MEDS ORDERED: ISOVUE-370 76% 100ML VIAL (Q9967) As Ordered ONE (10:32)
[2016-11-08] MEDS ORDERED: SODIUM CHLORIDE 0.9% 1000 ML IV ONE (11:15)
--- NOTE | 2016-11-08 11:44 | REP ---
CT of the chest with IV contrast, CT pulmonary angiography: There are no emboli in the pulmonary trunk or central pulmonary arteries. There are no emboli in the pulmonary lobe or segment branches. There are no infiltrates, effusions or masses. There is left hilar lymph node enlargement measuring up to 14 mm short axis (7 mm on 06/07/2016). The right hilar nodes are stable and unchanged from 06/07/2016. There is no mediastinal lymph node enlargement. This is unchanged. On the comparison study there were bilateral pulmonary emboli. These have resolved. The thoracic aorta is unremarkable. Cardiac size is normal. There is no pericardial effusion. The visualized upper abdominal contents are unremarkable. Impression: There are no pulmonary emboli. The pulmonary emboli identified 06/07/2016 have resolved. There is an enlarged left hilar node measuring up to 14 mm (7 mm on 06/07/2016). There is no other lymphadenopathy. There are no infiltrates, effusions or masses. Signed by Mihir Mooney MD 11/08/2016 11:35 A
[2016-11-08] MEDS ORDERED: SUCRALFATE 1 GM TAB PO ONE (11:45)
[2016-11-08 14:46] VITALS: BP 129/86
--- NOTE | 2016-11-09 20:24 | ECGEPIP ---
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
--- NOTE | 2016-11-09 20:24 | ECGEPIP ---
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
--- NOTE | 2016-11-12 09:11 | ECGEPIP ---
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
== END 2016-11-08 14:46 | disposition short-term general hospital (02) ==
LOC: M ED 09:39
DX: I24.9 Acute ischemic heart disease, unspecified (principal); Z86.718 Personal history of other venous thrombosis and embolism
CPT/HCPCS: 71010; 71275; 80048; 80076; 82550; 82553; 83690; 83880; 84443; 84484; 85025; 85610; 87040; 93005; 93041; 93970; 94760; 96372; 96374; 96375; 96376; 99285; J2405; Q9967

== ENCOUNTER → 2016-11-17 | Outpatient (CLI) | payer MEDICARE, BC, OTHER ==
[~2016-11-17] MED LIST changes: +CART120C; +[UNRECOGNIZED DRUG - CODE] IM
== END ==
LOC: M LAB 10:08
DX: M13.0 Polyarthritis, unspecified (principal); R61 Generalized hyperhidrosis

== ENCOUNTER → 2016-11-17 | Outpatient (CLI) | payer MEDICARE, BC, OTHER ==
[2016-11-19 00:06] LABS: Lyme Disease IgG/IgM Antibodie <0.91 ISR (0.00-0.90); Lyme Disease IgM Ab Quantitati <0.80 index (0.00-0.79)
[2016-11-20 00:07] LABS: BLASTOMYCES ANTIBODY LEVEL Negative (Neg:<1:1); E CHAFFEENSIS IgG TITER Negative (Neg:<1:64); E CHAFFEENSIS IgM TITER Negative (Neg:<1:20); HISTOPLASMOSIS ANTIBODY Negative (Neg:<1:1); HUMAN GRANULCYTIC EHRLIC IgG Negative (Neg:<1:64); HUMAN GRANULCYTIC EHRLIC IgM Negative (Neg:<1:20)
== END ==
LOC: M LAB 09:58
DX: R61 Generalized hyperhidrosis (principal)

== ENCOUNTER → 2016-12-09 | Outpatient (REF) | payer MEDICARE, OTHER | LOC: M LAB REF 13:39 | PROVIDERS: ATTEND Internal Medicine Nephrology | DX: N03.2 Chronic nephritic syndrome with diffuse membranous glomerulonephritis (principal) ==

== ENCOUNTER → 2016-12-11 | Outpatient (CLI) | payer MEDICARE, BC, OTHER | LOC: M LAB 11:06 | PROVIDERS: ATTEND Internal Medicine Nephrology | DX: R50.9 Fever, unspecified (principal) ==